=== PATIENT | female | born 1995 | race Hispanic/Latino ===

== ENCOUNTER 2018-12-28 14:21 | Emergency (ER) | payer OTHER, SELFPAY ==
[2018-12-28] MEDS ORDERED: DEXAMETHASONE 4 MG TAB ONE (16:37)
[2018-12-28] MEDS ORDERED: BENZONATATE 100 MG CAP PO ONE (16:37)
--- NOTE | 2018-12-28 17:28 | ER ---
Nurse's Notes [facility] Name: Makenzie Gomez Age: 23 yrs Sex: Female : 1995 Arrival Date: 12/28/2018 Time: 14:27 Bed 6 Private MD: Diagnosis: Acute upper respiratory infection, unspecified Presentation: 12/28 14:41 Presenting complaint: Patient states: Sore throat with cough for 2 days. Transition of aj care: patient was not received from another setting of care. Onset of symptoms was December 26, 2018. Care prior to arrival: None. 14:41 Method Of Arrival: Ambulatory 14:41 Acuity: LAUREN 4 aj 17:16 Risk Assessment: Do you want to hurt yourself or someone else? Patient reports no ph desire to harm self or others. Initial Sepsis Screen: Does the patient meet any 2 criteria? No. Patient's initial sepsis screen is negative. Does the patient have a suspected source of infection? Yes: Productive cough/pneumonia. Triage Assessment: 14:42 General: Appears in no apparent distress. comfortable, Behavior is calm, cooperative, aj appropriate for age. EENT: Reports pain when swallowing. Neuro: Level of Consciousness is awake, alert, obeys commands, Oriented to person, place, time, situation, Appropriate for age. Respiratory: Airway is patent Trachea midline Respiratory effort is even, unlabored, Respiratory pattern is regular, symmetrical. Derm: Skin is pink, warm \T\ dry. 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 - Social history:: Smoking status: Patient/guardian denies using tobacco. - Ebola Screening: : No symptoms or risks identified at this time. Screenin:14 Abuse screen: Denies threats or abuse. Denies injuries from another. Nutritional ph screening: No deficits noted. Tuberculosis screening: No symptoms or risk factors identified. Fall Risk None identified. Assessment: 15:00 General: Appears in no apparent distress. uncomfortable, slender, well groomed, ph Behavior is calm, cooperative, appropriate for age, Denies fever. Pain: Complains of pain in throat. Neuro: Level of Consciousness is awake, alert, obeys commands, Oriented to person, place, time, situation. Cardiovascular: Capillary refill < 3 seconds in bilateral fingers Patient's skin is warm and dry. Respiratory: Reports cough that is productive, Airway is patent Respiratory effort is even, unlabored, Respiratory pattern is regular, symmetrical, Breath sounds are coarse in mediastinum. GI: No signs and/or symptoms were reported involving the gastrointestinal system. Patient currently denies abdominal pain, nausea, vomiting. EENT: Reports nasal congestion pain when swallowing. Derm: Skin is intact, is healthy with good turgor, Skin is pink, warm \T\ dry. Musculoskeletal: Circulation, motion, and sensation intact. Range of motion: intact in all extremities. Vital Signs: 14:42 BP 132 / 76; Pulse 98; Resp 18; Temp 99.2; Pulse Ox 99% on R/A; Weight 51.71 kg; Height aj 5 ft. 3 in. (160.02 cm); 14:42 Body Mass Index 20.19 (51.71 kg, 160.02 cm) ED Course: 14:27 Patient arrived in ED. tw3 14:42 Triage completed. aj 14:42 Arm band placed on left wrist. aj 14:46 Rashid Walters MD is Attending Physician. ps1 15:16 Nancy Perera, RN is Primary Nurse. ph 15:41 Flu and/or RSV swab sent to lab. Strep swab sent to lab. jb1 17:15 No provider procedures requiring assistance completed. Patient did not have IV access ph during this emergency room visit. 17:16 Patient has correct armband on for positive identification. Placed in gown. Bed in low ph position. Call light in reach. Side rails up X 1. Pulse ox on. NIBP on. Door closed. Noise minimized. Administered Medications: 16:32 Drug: Decadron 10 mg Route: PO; ph 16:40 Follow up: Response: No adverse reaction ph 16:32 Drug: Tessalon Perle 100 mg Route: PO; ph 16:40 Follow up: Response: No adverse reaction ph Outcome: 17:26 Discharge ordered by MD. ps1 17:44 Patient left the ED. ph 17:44 Discharged to home ambulatory. ph 17:44 Condition: good 17:44 Discharge instructions given to patient, Instructed on discharge instructions, follow up and referral plans. medication usage, Demonstrated understanding of instructions, follow-up care, medications, Prescriptions given X 4. Signatures: Jaquan Quarles1 Suze Bah RN RN Nancy Arnold RN RN Roe, Sima tw3 Rashid Walters MD MD ps1
--- NOTE | 2018-12-28 17:29 | EDPHYS ---
Physician Documentation [facility] Name: Makenzie Gomez Age: 23 yrs Sex: Female : 1995 Arrival Date: 12/28/2018 Time: 14:27 Bed 6 Private MD: ED Physician Rashid Walters HPI: 12/28 15:13 This 23 yrs old Female presents to ER via Ambulatory with complaints of Cough. ps1 15:13 patient with influenza like illness. Started 3 days ago. States that she has ps1 pharyngitis, cough, headache, chills. Not taking any medications. Lots of phlegm with cough that is clear. No remitting factors or medications taken. . 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 - Social history:: Smoking status: Patient/guardian denies using tobacco. - Ebola Screening: : No symptoms or risks identified at this time. ROS: 15:13 Eyes: Negative for injury, pain, redness, and discharge, Neck: Negative for injury, ps1 pain, and swelling, Cardiovascular: Negative for chest pain, palpitations, and edema, Abdomen/GI: Negative for abdominal pain, nausea, vomiting, diarrhea, and constipation, Back: Negative for injury and pain, MS/Extremity: Negative for injury and deformity, Skin: Negative for injury, rash, and discoloration, Neuro: Negative for headache, weakness, numbness, tingling, and seizure. 15:13 Constitutional: Positive for body aches, chills, fatigue, fever. 15:13 ENT: Positive for sinus congestion, sore throat. 15:13 Respiratory: Positive for cough. Exam: 15:13 Constitutional: This is a well developed, well nourished patient who is awake, alert, ps1 and in no acute distress. Head/Face: Normocephalic, atraumatic. Chest/axilla: Normal chest wall appearance and motion. Nontender with no deformity. No lesions are appreciated. Cardiovascular: Regular rate and rhythm. No gallops, murmurs, or rubs. Normal PMI, no JVD. No pulse deficits. Respiratory: Lungs have equal breath sounds bilaterally, clear to auscultation and percussion. No rales, rhonchi or wheezes noted. No increased work of breathing, no retractions or nasal flaring. Abdomen/GI: Soft, non-tender, with normal bowel sounds. No distension or tympany. No guarding or rebound. No evidence of tenderness throughout. MS/ Extremity: Pulses equal, no cyanosis. Neurovascular intact. Full, normal range of motion. Neuro: Awake and alert, GCS 15, oriented to person, place, time, and situation. Cranial nerves II-XII grossly intact. Sensory grossly intact. 15:13 ENT: External ear(s): are unremarkable, Nose: is normal, Mouth: Lips: normal, Oral mucosa: normal, Gums: normal with healthy appearance, Posterior pharynx: Tonsils: bilaterally enlarged, with erythema, no exudate. Vital Signs: 14:42 BP 132 / 76; Pulse 98; Resp 18; Temp 99.2; Pulse Ox 99% on R/A; Weight 51.71 kg; Height aj 5 ft. 3 in. (160.02 cm); 14:42 Body Mass Index 20.19 (51.71 kg, 160.02 cm) aj MDM: 15:04 Patient medically screened. [facility] 12/28 15:04 Order name: Strep; Complete Time: 16:20 [facility] 12/28 15:04 Order name: Flu; Complete Time: 17:26 [facility] 12/28 16:19 Order name: Throat Culture EDMS Administered Medications: 16:32 Drug: Decadron 10 mg Route: PO; ph 16:40 Follow up: Response: No adverse reaction ph 16:32 Drug: Tessalon Perle 100 mg Route: PO; ph 16:40 Follow up: Response: No adverse reaction ph Disposition: 12/28/18 17:26 Discharged to Home. Impression: Acute upper respiratory infection, unspecified. - Condition is Stable. - Discharge Instructions: Upper Respiratory Infection, Adult. - Prescriptions for Cepacol Sore Throat (shayna- men) - take 1 lozenge by ORAL route as directed; 30 lozenge. chlorpheniramine maleate 4 mg Oral Tablet - take 1 tablet by ORAL route every 6 hours As needed; 30 tablet. Medrol (Matias) 4 mg Oral Tablets, Dose Pack - take 1 tablet by ORAL route as directed - follow package instructions; 1 packet. - Work release form, Medication Reconciliation Form, Thank You Letter, Antibiotic Education, Prescription Opioid Use form. - Follow up: Private Physician; When: As needed; Reason: Further diagnostic work-up, Recheck today's complaints, Continuance of care, Re-evaluation by your physician. Follow up: Emergency Department; When: As needed; Reason: Worsening of condition. - Problem is new. - Symptoms are unchanged. Signatures: Dispatcher [employer] EDSuze Paiz RN RN aj Hall, Patricia, RN RN ph Singer, Phillip, MD MD ps1 Corrections: (The following items were deleted from the chart) 17:44 17:26 12/28/2018 17:26 Discharged to Home. Impression: Acute upper respiratory ph infection, unspecified. Condition is Stable. Forms are Medication Reconciliation Form, Thank You Letter, Antibiotic Education, Prescription Opioid Use. Follow up: Private Physician; When: As needed; Reason: Further diagnostic work-up, Recheck today's complaints, Continuance of care, Re-evaluation by your physician. Follow up: Emergency Department; When: As needed; Reason: Worsening of condition. Problem is new. Symptoms are unchanged. ps1
== END 2018-12-28 17:44 | disposition home or self-care (01) ==
LOC: ER 14:21
DX: J06.9 Acute upper respiratory infection, unspecified (principal)
CPT/HCPCS: 87070; 87081; 87804; 99284

== ENCOUNTER 2019-02-06 13:11 | Emergency (ER) | payer SELFPAY ==
--- OUTSIDE RECORDS SUMMARY | 2019-02-06 13:13 | XMS REPORT ---
:1995 [facility] Organization [facility] Address [address] [place] [address] Care Team Providers Name Role Phone Unavailable Unavailable Unavailable Problems This patient has no known problems. Allergies, Adverse Reactions, Alerts This patient has no known allergies or adverse reactions. Medications This patient has no known medications.
[2019-02-06 14:03] LABS: Absolute Lymphocytes (CBC) 2.3 K/uL (0.7-4.9); Basophils % 0.6 % (0-1.3); Eosinophils % 1.7 % (0-4.4); Hematocrit 43.6 % (36.0-45.0); Lymphocytes % 27.1 % (15.3-44.8); MPV 8.6 fL (7.6-11.3); Monocytes % 9.2 % (3.3-12.3); RBC Red Blood Cell Count 4.81 M/uL (3.86-4.86)
[2019-02-06 14:18] LABS: BUN Blood Urea Nitrogen 14 mg/dL (7-18); Bicarbonate 25 mmol/L (21-32); Glucose Level 89 mg/dL (74-106); Potassium 4.2 mmol/L (3.5-5.1); Sodium Level 143 mmol/L (136-145)
[2019-02-06 14:54] LABS: Urine Blood NEGATIVE (NEG); Urine Glucose NEGATIVE (NEG); Urine Protein NEGATIVE (NEG)
[2019-02-06] MEDS ORDERED: ONDANSETRON 4 MG/2 ML VIAL ONE (14:56)
[2019-02-06] MEDS ORDERED: KETOROLAC 30 MG/ML INJ ONE (14:56)
--- NOTE | 2019-02-06 15:45 | EDPHYS ---
Physician Documentation [facility] Name: Makenzie Gomez Age: 23 yrs Sex: Female : 1995 Arrival Date: 02/06/2019 Time: 13:15 Bed 26 Private MD: ED Physician Jose Barnhart HPI: 02/06 15:53 This 23 yrs old Female presents to ER via Wheelchair with complaints of kb Abdominal Pain, Vaginal Discharge. 15:53 The patient presents with abdominal pain in the left lower quadrant. Onset: The kb symptoms/episode began/occurred yesterday. The symptoms do not radiate. Associated signs and symptoms: Pertinent positives: diarrhea, nausea. The symptoms are described as constant. Modifying factors: The symptoms are alleviated by nothing, the symptoms are aggravated by nothing. Severity of pain: At its worst the pain was moderate in the emergency department the pain is unchanged. The patient has experienced similar episodes in the past, several times, and the symptoms today are exactly the same, to previous ovarian cysts. The patient has not recently seen a physician. 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 - Social history:: Smoking status: Patient uses tobacco products, denies chronic smoking, but will smoke occasionally. - Ebola Screening: : Patient denies travel to an Ebola-affected area in the 21 days before illness onset. ROS: 15:52 Constitutional: Negative for fever, chills, and weight loss, Cardiovascular: Negative kb for chest pain, palpitations, and edema, Respiratory: Negative for shortness of breath, cough, wheezing, and pleuritic chest pain, Back: Negative for injury and pain, MS/Extremity: Negative for injury and deformity, Skin: Negative for injury, rash, and discoloration, Neuro: Negative for headache, weakness, numbness, tingling, and seizure. 15:52 Abdomen/GI: Positive for abdominal pain, nausea, diarrhea. Exam: 15:52 Constitutional: This is a well developed, well nourished patient who is awake, alert, kb and in no acute distress. Head/Face: Normocephalic, atraumatic. Chest/axilla: Normal chest wall appearance and motion. Nontender with no deformity. No lesions are appreciated. Cardiovascular: Regular rate and rhythm with a normal S1 and S2. No gallops, murmurs, or rubs. Normal PMI, no JVD. No pulse deficits. Respiratory: Lungs have equal breath sounds bilaterally, clear to auscultation and percussion. No rales, rhonchi or wheezes noted. No increased work of breathing, no retractions or nasal flaring. Back: No spinal tenderness. No costovertebral tenderness. Full range of motion. Skin: Warm, dry with normal turgor. Normal color with no rashes, no lesions, and no evidence of cellulitis. MS/ Extremity: Pulses equal, no cyanosis. Neurovascular intact. Full, normal range of motion. Neuro: Awake and alert, GCS 15, oriented to person, place, time, and situation. Cranial nerves II-XII grossly intact. Motor strength 5/5 in all extremities. Sensory grossly intact. Cerebellar exam normal. Normal gait. 15:52 Abdomen/GI: Inspection: abdomen appears normal, Bowel sounds: normal, in all quadrants, Palpation: soft, in all quadrants, mild abdominal tenderness, in the suprapubic area and left lower quadrant. Vital Signs: 13:18 BP 111 / 77; Pulse 92; Resp 20; Temp 98.0; Pulse Ox 99% on R/A; Weight 51.26 kg (R); aj1 Height 5 ft. 3 in. (160.02 cm) (R); Pain 8/10; 14:46 BP 96 / 59; Pulse 67; Resp 18; Temp 98; Pulse Ox 100% on R/A; mg2 15:50 BP 109 / 85; Pulse 63; Resp 18; Pulse Ox 100% on R/A; mg2 13:18 Body Mass Index 20.02 (51.26 kg, 160.02 cm) aj1 MDM: 13:21 Patient medically screened. kb 15:51 Data reviewed: vital signs, nurses notes. Data interpreted: Pulse oximetry: on room air kb is 100 %. Interpretation: normal. Counseling: I had a detailed discussion with the patient and/or guardian regarding: the historical points, exam findings, and any diagnostic results supporting the discharge/admit diagnosis, lab results, radiology results, the need for outpatient follow up, an OB/Gyne specialist, to return to the emergency department if symptoms worsen or persist or if there are any questions or concerns that arise at home. 02/06 13:36 Order name: CBC with Diff; Complete Time: 14:06 kb 02/06 13:36 Order name: Basic Metabolic Panel; Complete Time: 14:22 kb 02/06 14:06 Order name: US Transvaginal Study (Probe); Complete Time: 15:54 kb 02/06 14:13 Order name: Urine Dipstick--Ancillary (enter results) ms 02/06 14:13 Order name: Urine --Ancillary (enter results); Complete Time: 14:59 ms 02/06 14:13 Order name: Urine Dipstick-Ancillary; Complete Time: 14:59 EDMS 02/06 13:21 Order name: Urine Dipstick-Ancillary (obtain specimen); Complete Time: 14:01 kb 02/06 13:36 Order name: Urine Test (obtain specimen); Complete Time: 14:02 kb 02/06 13:36 Order name: IV Start; Complete Time: 13:53 kb Administered Medications: 14:43 Drug: Zofran 4 mg Route: IVP; Site: right antecubital; mg2 15:49 Follow up: Response: No adverse reaction; Marked relief of symptoms mg2 14:43 Drug: TORadol - Ketorolac 15 mg Route: IVP; Site: right antecubital; mg2 15:49 Follow up: Response: No adverse reaction; Marked relief of symptoms mg2 Disposition: 18:45 Co-signature as Attending Physician, Jose Barnhart MD. gs Disposition: 02/06/19 15:45 Discharged to Home. Impression: Unspecified ovarian cysts. - Condition is Stable. - Discharge Instructions: Ovarian Cyst, [id number]. - Prescriptions for Zofran 4 mg Oral Tablet - take 1 tablet by ORAL route every 6 hours As needed; 20 tablet. Diclofenac Sodium 75 mg Oral Tablet, Delayed Release (E.C.) - take 1 tablet by ORAL route 2 times per day As needed; 30 tablet. - Medication Reconciliation Form, Thank You Letter, Antibiotic Education, Prescription Opioid Use form. - Follow up: Emergency Department; When: As needed; Reason: Worsening of condition. Follow up: Private Physician; When: 2 - 3 days; Reason: Recheck today's complaints, Continuance of care, Re-evaluation by your physician. Signatures: Dispatcher [employer] Josephine Malloy, TIM REYEZ-Leila Gomez, RN RN aj1 Jose Barnhart MD MD gs Segun Coreas RN RN mg2 Corrections: (The following items were deleted from the chart) 16:01 15:45 02/06/2019 15:45 Discharged to Home. Impression: Unspecified ovarian cysts. mg2 Condition is Stable. Forms are Medication Reconciliation Form, Thank You Letter, Antibiotic Education, Prescription Opioid Use. Follow up: Emergency Department; When: As needed; Reason: Worsening of condition. Follow up: Private Physician; When: 2 - 3 days; Reason: Recheck today's complaints, Continuance of care, Re-evaluation by your physician. kb
--- NOTE | 2019-02-06 15:45 | ER ---
Nurse's Notes [facility] Name: Makenzie Gomez Age: 23 yrs Sex: Female : 1995 Arrival Date: 02/06/2019 Time: 13:15 Bed 26 Private MD: Diagnosis: Unspecified ovarian cysts Presentation: 02/06 13:16 Presenting complaint: Patient states: "yesterday I was cramping, then this morning I aj1 woke up and I had the runs really bad and every time I burp it tastes like acid" Patient also reports a "mucus discharge" from her vagina that started today. Denies fever. Transition of care: patient was not received from another setting of care. Onset of symptoms was February 06, 2019. Risk Assessment: Do you want to hurt yourself or someone else? Patient reports no desire to harm self or others. Initial Sepsis Screen: Does the patient meet any 2 criteria? HR > 90 bpm. No. Patient's initial sepsis screen is negative. Does the patient have a suspected source of infection? Yes: Acute abdominal pain. Care prior to arrival: None. 13:16 Method Of Arrival: Wheelchair aj 13:16 Acuity: LAUREN 3 aj1 Triage Assessment: 13:18 General: Appears uncomfortable, Behavior is calm, cooperative, appropriate for age. aj1 Pain: Complains of pain in abdomen Pain currently is 8 out of 10 on a pain scale. Neuro: Level of Consciousness is awake, alert, obeys commands. Cardiovascular: Patient's skin is warm and dry. Respiratory: Airway is patent Respiratory effort is even, unlabored, Respiratory pattern is regular, symmetrical. GI: Reports diarrhea. 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 - Social history:: Smoking status: Patient uses tobacco products, denies chronic smoking, but will smoke occasionally. - Ebola Screening: : Patient denies travel to an Ebola-affected area in the 21 days before illness onset. Screenin:46 Abuse screen: Denies threats or abuse. Denies injuries from another. Nutritional mg2 screening: No deficits noted. Tuberculosis screening: No symptoms or risk factors identified. Fall Risk IV access (20 points). Assessment: 14:43 General: Appears in no apparent distress. comfortable, Behavior is calm, cooperative. mg2 Pain: Complains of pain in abdomen Pain does not radiate. Pain currently is 5 out of 10 on a pain scale. Quality of pain is described as crampy, Pain began gradually, 1 day ago. Is intermittent. Neuro: Level of Consciousness is awake, alert, obeys commands, Oriented to person, place, time, situation. Cardiovascular: Capillary refill < 3 seconds Patient's skin is warm and dry. Respiratory: No deficits noted. GI: Bowel sounds present X 4 quads. Abd is soft and non tender Reports lower abdominal pain, nausea. : No signs and/or symptoms were reported regarding the genitourinary system. EENT: No signs and/or symptoms were reported regarding the EENT system. Derm: Skin is intact, is healthy with good turgor, Skin is pink, warm \\T\\ dry. normal. Musculoskeletal: Circulation, motion, and sensation intact. Capillary refill < 3 seconds. Vital Signs: 13:18 BP 111 / 77; Pulse 92; Resp 20; Temp 98.0; Pulse Ox 99% on R/A; Weight 51.26 kg (R); aj1 Height 5 ft. 3 in. (160.02 cm) (R); Pain 8/10; 14:46 BP 96 / 59; Pulse 67; Resp 18; Temp 98; Pulse Ox 100% on R/A; mg2 15:50 BP 109 / 85; Pulse 63; Resp 18; Pulse Ox 100% on R/A; mg2 13:18 Body Mass Index 20.02 (51.26 kg, 160.02 cm) aj1 ED Course: 13:15 Patient arrived in ED. mr 13:17 Triage completed. aj1 13:18 Arm band placed on Patient placed in an exam room. aj1 13:21 Josephine Ledezma FNP-C [facility]. kb 13:21 Jose Barnhart MD is Attending Physician. kb 13:26 Leila Duff, KATHRIN is Primary Nurse. aj1 13:45 Urine collected: clean catch specimen, clear, monalisa colored. jp3 13:49 Initial lab(s) drawn, by me, sent to lab. Inserted saline lock: 22 gauge in right jp3 antecubital area, using aseptic technique. Blood collected. Patient maintains SpO2 saturation greater than 95% on room air. 13:53 Bed in low position. Call light in reach. Side rails up X 1. Pillow given. Verbal jp3 reassurance given. Pulse ox on. NIBP on. 13:53 Basic Metabolic Panel Sent. jp3 13:53 CBC with Diff Sent. jp3 14:18 Urine Dipstick--Ancillary (enter results) Sent. jp3 14:46 No provider procedures requiring assistance completed. mg2 15:39 US Transvaginal Study (Probe) In Process Unspecified. EDMS 15:57 IV discontinued, intact, bleeding controlled, No redness/swelling at site. Pressure mg2 dressing applied. Administered Medications: 14:43 Drug: Zofran 4 mg Route: IVP; Site: right antecubital; mg2 15:49 Follow up: Response: No adverse reaction; Marked relief of symptoms mg2 14:43 Drug: TORadol - Ketorolac 15 mg Route: IVP; Site: right antecubital; mg2 15:49 Follow up: Response: No adverse reaction; Marked relief of symptoms mg2 Outcome: 15:45 Discharge ordered by . kb 16:00 Discharged to home ambulatory. mg2 16:00 Condition: stable 16:00 Discharge instructions given to patient, Instructed on discharge instructions, follow up and referral plans. medication usage, Demonstrated understanding of instructions, follow-up care, medications, Prescriptions given X 2. 16:01 Patient left the ED. mg2 Signatures: Dispatcher [employer] EDMS Josephine Ledezma, TREASUREC POWERPLANT OPERATOR-Leila Gomez, RN RN aj1 Kajal Del Rio Michele, KATHRIN RN mg2 Kang Petty jp3
--- NOTE | 2019-02-06 15:52 | RAD REPORT ---
EXAM DESCRIPTION: US - Transvaginal Study Probe - 02/06/2019 3:39 pm CLINICAL HISTORY: Abdominal pain COMPARISON: none FINDINGS: The uterus measures 7 x 4 x 4cm. A fibroid is not seen. The endometrial stripe measures 7 millimeters The ovaries are normal in size and echotexture. 1.6 centimeter left ovarian follicle. Blood flow with in each ovary Right and left adnexal unremarkable No significant free fluid is seen. IMPRESSION: Unremarkable pelvic ultrasound
== END 2019-02-06 16:01 | disposition home or self-care (01) ==
LOC: ER 13:11
DX: N83.209 Unspecified ovarian cyst, unspecified side (principal); Z72.0 Tobacco use
CPT/HCPCS: 36415; 76830; 80048; 81003; 81025; 85025; 96374; 96375; 99284; J2405

== ENCOUNTER 2019-02-22 16:10 | Emergency (ER) | payer SELFPAY ==
[2019-02-22] MEDS ORDERED: ONDANSETRON 4 MG (ODT) TAB ONE (16:39)
[2019-02-22 17:29] LABS: Absolute Lymphocytes (CBC) 0.7 K/uL (0.7-4.9); Lymphocytes % 4.6 % (15.3-44.8); MPV 7.9 fL (7.6-11.3); RBC Red Blood Cell Count 4.95 M/uL (3.86-4.86)
[2019-02-22 17:46] LABS: ALT/SGPT 19 U/L (12-78); AST/SGOT 14 U/L (15-37); Albumin 4.2 g/dL (3.4-5.0); Alkaline Phosphatase 66 U/L (45-117); BUN Blood Urea Nitrogen 11 mg/dL (7-18); Bicarbonate 23 mmol/L (21-32); Bilirubin Direct 0.1 mg/dL (0-0.2); Bilirubin Total 0.6 mg/dL (0.2-1.0); Glucose Level 84 mg/dL (74-106); Lipase 57 U/L (73-393); Potassium 3.8 mmol/L (3.5-5.1); Protein, Total 8.1 g/dL (6.4-8.2); Sodium Level 139 mmol/L (136-145)
[2019-02-22 17:48] LABS: Urine Blood NEGATIVE (NEG); Urine Glucose NEGATIVE (NEG); Urine Protein TRACE (NEG); Urine Specific Gravity >1.030 (1.005-1.030)
[2019-02-22] MEDS ORDERED: KETOROLAC 30 MG/ML INJ ONE (17:50)
[2019-02-22] MEDS ORDERED: NA CHLORIDE 0.9% 1,000 ML ONE (17:50)
[2019-02-22] MEDS ORDERED: ONDANSETRON 4 MG/2 ML VIAL ONE ×2 (17:50→19:27)
[2019-02-22 18:23] LABS: Blood Morphology Comment NOT SEEN (NOT SEEN); Platelet Estimate ADEQ; Urine White Blood Cell Casts OK
--- NOTE | 2019-02-22 18:48 | RAD REPORT ---
EXAM DESCRIPTION: CT - Abdomen Pelvis W Contrast - 02/22/2019 6:22 pm CLINICAL HISTORY: Abdominal pain with vomiting COMPARISON: 2013 TECHNIQUE: Computed axial tomography of the abdomen pelvis was obtained. 100 cc Isovue-300 was admin istered intravenously. Oral contrast was not requested which limits evaluation of bowel. All CT scans are performed using dose optimization technique as appropriate and may include automated exposure control or mA/KV adjustment according to patient size. FINDINGS: The liver, spleen, pancreas, adrenal and kidneys appear unremarkable. There is no evidence of diverticulitis. Fluid throughout nondilated large and small bowel. Mild thickening of the wall of several loops of je junum 15 millimeter left ovarian follicle IMPRESSION: Fluid throughout nondilated large and small bowel with mild thickening of the wall of se veral loops of jejunum may indicate an enteritis
--- NOTE | 2019-02-22 19:14 | ER ---
Nurse's Notes [facility] Name: Makenzie Gomez Age: 23 yrs Sex: Female : 1995 Arrival Date: 02/22/2019 Time: 16:12 Bed 28 Private MD: Diagnosis: Generalized abdominal pain Presentation: 02/22 16:35 Presenting complaint: N/V/D and chills since this morning. Not tolerating fluids. hb Transition of care: patient was not received from another setting of care. Onset of symptoms was February 22, 2019. Risk Assessment: Do you want to hurt yourself or someone else? Patient reports no desire to harm self or others. Care prior to arrival: None. 16:35 Method Of Arrival: Ambulatory hb 16:35 Acuity: LAUREN 3 hb 17:09 Initial Sepsis Screen: Does the patient meet any 2 criteria? No. Patient's initial mg2 sepsis screen is negative. Does the patient have a suspected source of infection? No. Patient's initial sepsis screen is negative. 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 - Social history:: Smoking status: Patient/guardian denies using tobacco. - Ebola Screening: : No symptoms or risks identified at this time. Screenin:09 Abuse screen: Denies threats or abuse. Denies injuries from another. Nutritional mg2 screening: No deficits noted. Tuberculosis screening: No symptoms or risk factors identified. Fall Risk None identified. Assessment: 17:19 General: Appears uncomfortable, Behavior is calm, cooperative. Pain: Complains of pain mg2 in abdomen Pain does not radiate. Pain currently is 8 out of 10 on a pain scale. Quality of pain is described as aching, Pain began gradually, Is intermittent. Neuro: Level of Consciousness is awake, alert, obeys commands, Oriented to person, place, time, situation. Cardiovascular: Capillary refill < 3 seconds Patient's skin is warm and dry. Respiratory: Airway is patent Respiratory effort is even, unlabored, Respiratory pattern is regular, symmetrical. GI: Bowel sounds present X 4 quads. Abd is soft and non tender Reports lower abdominal pain, upper abdominal pain, nausea, vomiting. EENT: No signs and/or symptoms were reported regarding the EENT system. Derm: Skin is intact, is healthy with good turgor, Skin is pink, warm \T\ dry. normal. Musculoskeletal: Circulation, motion, and sensation intact. Capillary refill < 3 seconds. 18:51 Reassessment: Patient states feeling better. mg2 19:53 Reassessment: Patient states feeling better. Patient states symptoms have improved. mg2 Vital Signs: 16:35 BP 138 / 79; Pulse 116; Resp 16; Temp 98.1; Pulse Ox 100% on R/A; Weight 68.04 kg; hb Height 5 ft. 3 in. (160.02 cm); Pain 10/10; 18:45 BP 121 / 75; Pulse 92; Resp 18; Pulse Ox 100% on R/A; Pain 4/10; mg2 16:35 Body Mass Index 26.57 (68.04 kg, 160.02 cm) hb ED Course: 16:12 Patient arrived in ED. mr 16:35 Triage completed. hb 16:35 Arm band placed on. hb 17:08 Segun Coreas, RN is Primary Nurse. mg2 17:19 Patient has correct armband on for positive identification. vehicle monitor technician on. Pulse mg2 ox on. NIBP on. Door closed. Warm blanket given. 17:19 No provider procedures requiring assistance completed. Inserted saline lock: 20 gauge mg2 22 gauge in left antecubital area, using aseptic technique. Blood collected. 17:20 Joseph[facility]ede[facility]-C [facility] kb 17:20 Farhat Dorantes MD is Attending Physician. kb 18:22 CT Abd/Pelvis - IV Contrast Only In Process Unspecified. EDMS 19:53 IV discontinued, intact, bleeding controlled, No redness/swelling at site. Pressure mg2 dressing applied. Administered Medications: 16:40 Drug: Zofran 4 mg Route: PO; hb 17:30 Follow up: Response: No adverse reaction mg2 17:53 Drug: TORadol - Ketorolac 15 mg Route: IVP; Site: left antecubital; mg2 18:52 Follow up: Response: No adverse reaction; Marked relief of symptoms mg2 19:52 Follow up: Response: No adverse reaction; Marked relief of symptoms mg2 17:54 Drug: NS 0.9% 1000 ml Route: IV; Rate: 1000 ml; Site: left antecubital; mg2 19:53 Follow up: Response: No adverse reaction; IV Status: Completed infusion; IV Intake: mg2 1000ml 17:54 Drug: Zofran 4 mg Route: IVP; Site: left antecubital; mg2 18:52 Follow up: Response: No adverse reaction; Marked relief of symptoms mg2 19:44 Drug: Zofran 4 mg Route: IVP; Site: left antecubital; mg2 19:52 Follow up: Response: No adverse reaction; Medication administered at discharge. mg2 19:45 Drug: Bentyl 20 mg Route: PO; mg2 19:52 Follow up: Response: No adverse reaction; Medication administered at discharge. mg2 Intake: 19:53 IV: 1000ml; Total: 1000ml. mg2 Outcome: 19:13 Discharge ordered by . kb 19:54 Discharged to home ambulatory. mg2 19:54 Condition: stable 19:54 Discharge instructions given to patient, Instructed on discharge instructions, follow up and referral plans. medication usage, Demonstrated understanding of instructions, follow-up care, medications, Prescriptions given X 2. 19:54 Patient left the ED. mg2 Signatures: Dispatcher [employer] EDMS Josephine Ledezma, TIM REYEZ-Kajal Salazar mr Jane Carreon, Segun Campos RN, RN RN mg2
--- NOTE | 2019-02-22 19:15 | EDPHYS ---
Physician Documentation [facility] Name: Makenzie Gomez Age: 23 yrs Sex: Female : 1995 Arrival Date: 02/22/2019 Time: 16:12 Bed 28 Private MD: ED Physician Farhat Dorantes HPI: 02/23 01:41 This 23 yrs old Female presents to ER via Ambulatory with complaints of kb Abdominal Pain, Vomiting. 01:41 The patient presents with abdominal pain that is diffuse. Onset: The symptoms/episode kb began/occurred last night. The symptoms do not radiate. Associated signs and symptoms: Pertinent positives: nausea, vomiting, and diarrhea. The symptoms are described as constant. Modifying factors: The symptoms are alleviated by nothing, the symptoms are aggravated by nothing. Severity of pain: At its worst the pain was moderate in the emergency department the pain is unchanged. The patient has not experienced similar symptoms in the past. The patient has not recently seen a physician. Pt reports n/v/d and diffuse abd pain since last night. States "I think I ate something bad.". 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 - Social history:: Smoking status: Patient/guardian denies using tobacco. - Ebola Screening: : No symptoms or risks identified at this time. ROS: 02/23 01:41 Constitutional: Negative for fever, chills, and weight loss, ENT: Negative for injury, kb pain, and discharge, Neck: Negative for injury, pain, and swelling, Cardiovascular: Negative for chest pain, palpitations, and edema, Respiratory: Negative for shortness of breath, cough, wheezing, and pleuritic chest pain, Back: Negative for injury and pain, : Negative for injury, bleeding, discharge, and swelling, MS/Extremity: Negative for injury and deformity, Skin: Negative for injury, rash, and discoloration, Neuro: Negative for headache, weakness, numbness, tingling, and seizure. Abdomen/GI: Positive for abdominal pain, nausea, vomiting, and diarrhea, Negative for constipation. Exam: 01:41 Constitutional: This is a well developed, well nourished patient who is awake, alert, kb and in no acute distress. Head/Face: Normocephalic, atraumatic. Neck: Trachea midline, no thyromegaly or masses palpated, and no cervical lymphadenopathy. Supple, full range of motion without nuchal rigidity, or vertebral point tenderness. No Meningismus. Chest/axilla: Normal chest wall appearance and motion. Nontender with no deformity. No lesions are appreciated. Cardiovascular: Regular rate and rhythm with a normal S1 and S2. No gallops, murmurs, or rubs. Normal PMI, no JVD. No pulse deficits. Respiratory: Lungs have equal breath sounds bilaterally, clear to auscultation and percussion. No rales, rhonchi or wheezes noted. No increased work of breathing, no retractions or nasal flaring. Skin: Warm, dry with normal turgor. Normal color with no rashes, no lesions, and no evidence of cellulitis. MS/ Extremity: Pulses equal, no cyanosis. Neurovascular intact. Full, normal range of motion. Neuro: Awake and alert, GCS 15, oriented to person, place, time, and situation. Cranial nerves II-XII grossly intact. Motor strength 5/5 in all extremities. Sensory grossly intact. Cerebellar exam normal. Normal gait. 01:41 Abdomen/GI: Inspection: abdomen appears normal, Bowel sounds: normal, in all quadrants, Palpation: soft, in all quadrants, mild abdominal tenderness, in all quadrants. Vital Signs: 02/22 16:35 BP 138 / 79; Pulse 116; Resp 16; Temp 98.1; Pulse Ox 100% on R/A; Weight 68.04 kg; hb Height 5 ft. 3 in. (160.02 cm); Pain 10/10; 18:45 BP 121 / 75; Pulse 92; Resp 18; Pulse Ox 100% on R/A; Pain 4/10; mg2 16:35 Body Mass Index 26.57 (68.04 kg, 160.02 cm) hb MDM: 17:20 Patient medically screened. kb 02/23 01:40 Data reviewed: vital signs, nurses notes. Data interpreted: Pulse oximetry: on room air kb is 100 %. Interpretation: normal. Counseling: I had a detailed discussion with the patient and/or guardian regarding: the historical points, exam findings, and any diagnostic results supporting the discharge/admit diagnosis, lab results, radiology results, the need for outpatient follow up, a family practitioner, to return to the emergency department if symptoms worsen or persist or if there are any questions or concerns that arise at home. 02/22 17:07 Order name: Basic Metabolic Panel; Complete Time: 17:47 mg2 02/22 17:07 Order name: CBC with Diff; Complete Time: 18:26 mg2 02/22 17:07 Order name: Creatinine for Radiology; Complete Time: 17:47 mg2 02/22 17:07 Order name: Hepatic Function; Complete Time: 17:47 mg2 02/22 17:07 Order name: Lipase; Complete Time: 17:47 mg2 02/22 17:24 Order name: Urine Dipstick--Ancillary (enter results); Complete Time: 17:51 bd 02/22 17:24 Order name: Urine --Ancillary (enter results); Complete Time: 17:51 bd 02/22 17:41 Order name: CBC Smear Scan; Complete Time: 18:26 EDMS 02/22 17:48 Order name: CT Abd/Pelvis - IV Contrast Only; Complete Time: 18:52 kb 02/22 17:07 Order name: IV Saline Lock; Complete Time: 17:23 mg2 02/22 17:07 Order name: Labs collected and sent; Complete Time: 17:23 mg2 Administered Medications: 02/22 16:40 Drug: Zofran 4 mg Route: PO; hb 17:30 Follow up: Response: No adverse reaction mg2 17:53 Drug: TORadol - Ketorolac 15 mg Route: IVP; Site: left antecubital; mg2 18:52 Follow up: Response: No adverse reaction; Marked relief of symptoms mg2 19:52 Follow up: Response: No adverse reaction; Marked relief of symptoms mg2 17:54 Drug: NS 0.9% 1000 ml Route: IV; Rate: 1000 ml; Site: left antecubital; mg2 19:53 Follow up: Response: No adverse reaction; IV Status: Completed infusion; IV Intake: mg2 1000ml 17:54 Drug: Zofran 4 mg Route: IVP; Site: left antecubital; mg2 18:52 Follow up: Response: No adverse reaction; Marked relief of symptoms mg2 19:44 Drug: Zofran 4 mg Route: IVP; Site: left antecubital; mg2 19:52 Follow up: Response: No adverse reaction; Medication administered at discharge. mg2 19:45 Drug: Bentyl 20 mg Route: PO; mg2 19:52 Follow up: Response: No adverse reaction; Medication administered at discharge. mg2 Disposition: 02/23 07:57 Co-signature as Attending Physician, Farhat Dorantes MD I agree with the assessment and wa plan of care. Disposition: 02/22/19 19:13 Discharged to Home. Impression: Generalized abdominal pain. - Condition is Stable. - Discharge Instructions: Viral Gastroenteritis, Adult, [id number]. - Prescriptions for Bentyl 20 mg Oral Tablet - take 1 tablet by ORAL route every 6 hours As needed; 20 tablet. Zofran 4 mg Oral Tablet - take 1 tablet by ORAL route every 6 hours As needed; 20 tablet. - Medication Reconciliation Form, Thank You Letter, Antibiotic Education, Prescription Opioid Use, Work release form form. - Follow up: Emergency Department; When: As needed; Reason: Worsening of condition. Follow up: Private Physician; When: 2 - 3 days; Reason: Recheck today's complaints, Continuance of care, Re-evaluation by your physician. Signatures: Dispatcher [employer] EDMS Josephine Ledezma, BUSINESS STRATEGY MANAGER-C BUSINESS STRATEGY MANAGER-Ckb Jane Carreon, KATHRIN PINON Farhat Dorantes MD MD wa Gardose, Michele, RN RN mg2 Leon Cook RN RN [id number] Corrections: (The following items were deleted from the chart) 02/22 19:54 19:13 02/22/2019 19:13 Discharged to Home. Impression: Generalized abdominal pain. mg2 Condition is Stable. Forms are Medication Reconciliation Form, Thank You Letter, Antibiotic Education, Prescription Opioid Use. Follow up: Emergency Department; When: As needed; Reason: Worsening of condition. Follow up: Private Physician; When: 2 - 3 days; Reason: Recheck today's complaints, Continuance of care, Re-evaluation by your physician. kb
[2019-02-22] MEDS ORDERED: DICYCLOMINE HCL 10 MG CAP ONE (19:27)
== END 2019-02-22 19:54 | disposition home or self-care (01) ==
LOC: ER 16:10
DX: R10.84 Generalized abdominal pain (principal)
CPT/HCPCS: 36415; 74177; 80048; 80076; 81003; 81025; 83690; 85025; 96361; 96374; 96375; 99284; J2405; J7030; Q9967

== ENCOUNTER 2019-03-17 16:54 | Emergency (ER) | payer SELFPAY ==
--- OUTSIDE RECORDS SUMMARY | 2019-03-17 16:56 | XMS REPORT ---
:1995 [facility] [address] [place] [id number] Care Team Providers Name Role Phone Unavailable Unavailable Unavailable Problems This patient has no known problems. Allergies, Adverse Reactions, Alerts This patient has no known allergies or adverse reactions. Medications This patient has no known medications.
[2019-03-17] MEDS ORDERED: dexAMETHasone 10 MG/ML VIAL ONE (17:14)
[2019-03-17] MEDS ORDERED: AMOX/K CLAV 875 MG TAB ONE (17:15)
[2019-03-17] MEDS ORDERED: KETOROLAC 30 MG/ML INJ ONE (17:15)
--- NOTE | 2019-03-17 17:21 | ER ---
Nurse's Notes [facility] Name: Makenzie Gomez Age: 23 yrs Sex: Female : 1995 Arrival Date: 03/17/2019 Time: 16:57 Bed 25 Private MD: Diagnosis: Periapical abscess without sinus Presentation: 03/17 17:05 Presenting complaint: Patient states: i have dental pain since yesterday and my left mg2 cheek started to swell today. i took advil and tylenol earlier this morning but not really helping. Transition of care: patient was not received from another setting of care. Onset of symptoms was March 16, 2019. Risk Assessment: Do you want to hurt yourself or someone else? Patient reports no desire to harm self or others. Initial Sepsis Screen: Does the patient meet any 2 criteria? No. Patient's initial sepsis screen is negative. Does the patient have a suspected source of infection? No. Patient's initial sepsis screen is negative. Care prior to arrival: None. 17:05 Method Of Arrival: Ambulatory mg2 17:05 Acuity: LAUREN 4 mg2 Triage Assessment: 17:08 General: Appears in no apparent distress. comfortable, Behavior is calm, cooperative. mg2 Pain: Complains of pain in mouth Pain radiates to left ear Pain currently is 10 out of 10 on a pain scale. Quality of pain is described as aching, Pain began gradually, 1 day ago. Is intermittent. EENT: Dental caries noted in lower left third molar (#17). Neuro: Level of Consciousness is awake, alert, obeys commands, Oriented to person, place, time, situation. Cardiovascular: Capillary refill < 3 seconds Patient's skin is warm and dry. Respiratory: Airway is patent Respiratory effort is even, unlabored, Respiratory pattern is regular, symmetrical. GI: No signs and/or symptoms were reported involving the gastrointestinal system. : No signs and/or symptoms were reported regarding the genitourinary system. Derm: Skin is intact, is healthy with good turgor, Skin is pink, warm \T\ dry. normal. Musculoskeletal: Circulation, motion, and sensation intact. Capillary refill < 3 seconds. 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 - Social history:: Smoking status: Patient uses tobacco products, denies chronic smoking, but will smoke occasionally. - Ebola Screening: : No symptoms or risks identified at this time. Screenin:10 Abuse screen: Denies threats or abuse. Denies injuries from another. Nutritional mg2 screening: No deficits noted. Tuberculosis screening: No symptoms or risk factors identified. Fall Risk None identified. Assessment: 17:10 Reassessment: see triage assessment. mg2 Vital Signs: 17:07 BP 110 / 74; Pulse 98; Resp 18; Temp 99.4; Pulse Ox 100% on R/A; Pain 10/10; mg2 ED Course: 16:57 Patient arrived in ED. mr 17:05 Segun Coreas, RN is Primary Nurse. mg2 17:07 Triage completed. mg2 17:07 Dileep Avila PA [facility]. jr8 17:07 Peace Gonzalez MD is Attending Physician. jr8 17:08 Arm band placed on. mg2 17:10 Patient has correct armband on for positive identification. mg2 17:10 No provider procedures requiring assistance completed. Patient did not have IV access mg2 during this emergency room visit. Administered Medications: 17:20 Drug: Augmentin 875 mg Route: PO; mg2 17:33 Follow up: Response: No adverse reaction; Medication administered at discharge. mg2 17:20 Drug: TORadol - Ketorolac 15 mg Route: IM; Site: right gluteus; mg2 17:32 Follow up: Response: No adverse reaction; Medication administered at discharge. mg2 17:20 Drug: Decadron 10 mg Route: IM; Site: left gluteus; mg2 17:32 Follow up: Response: No adverse reaction; Medication administered at discharge. mg2 Outcome: 17:19 Discharge ordered by . [email or web address] 17:33 Discharged to home ambulatory, with friend. mg2 17:33 Condition: stable 17:33 Discharge instructions given to patient, friend, Instructed on discharge instructions, follow up and referral plans. medication usage, Demonstrated understanding of instructions, follow-up care, medications, Prescriptions given X 2. 17:34 Patient left the ED. mg2 Signatures: Kajal Del Rio mr Dileep Avila PA PA [id number] Segun Coreas, RN RN mg2
--- NOTE | 2019-03-17 17:21 | EDPHYS ---
Physician Documentation [facility] Name: Makenzie Gomez Age: 23 yrs Sex: Female : 1995 Arrival Date: 03/17/2019 Time: 16:57 Bed 25 Private MD: ED Physician Peace Gonzalez HPI: 03/17 17:12 This 23 yrs old Female presents to ER via Ambulatory with complaints of Mouth jr8 Swelling. 17:12 The patient presents with pain, redness, swelling. The problem is located in the left jr8 jaw. Onset: The symptoms/episode began/occurred acutely, 2 day(s) ago. Duration: The symptoms are continuous. Modifying factors: The symptoms are alleviated by nothing, the symptoms are aggravated by chewing, talking. Associated signs and symptoms: The patient has no apparent associated signs or symptoms. Severity of symptoms: At their worst the symptoms were moderate, in the emergency department the symptoms are unchanged. The patient has experienced a previous episode. The patient has not recently seen a physician. 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 - Social history:: Smoking status: Patient uses tobacco products, denies chronic smoking, but will smoke occasionally. - Ebola Screening: : No symptoms or risks identified at this time. ROS: 17:12 Constitutional: Negative for fever, chills, and weight loss. jr8 17:12 ENT: Positive for dental pain, Gum pain 17:12 All other systems are negative. Exam: 17:12 Eyes: Pupils equal round and reactive to light, extra-ocular motions intact. Lids and jr8 lashes normal. Conjunctiva and sclera are non-icteric and not injected. Cornea within normal limits. Periorbital areas with no swelling, redness, or edema. Neck: Trachea midline, no thyromegaly or masses palpated, and no cervical lymphadenopathy. Supple, full range of motion without nuchal rigidity, or vertebral point tenderness. No Meningismus. Cardiovascular: Regular rate and rhythm with a normal S1 and S2. No gallops, murmurs, or rubs. Normal PMI, no JVD. No pulse deficits. Respiratory: Lungs have equal breath sounds bilaterally, clear to auscultation and percussion. No rales, rhonchi or wheezes noted. No increased work of breathing, no retractions or nasal flaring. Abdomen/GI: Soft, non-tender, with normal bowel sounds. No distension or tympany. No guarding or rebound. No evidence of tenderness throughout. Skin: Warm, dry with normal turgor. Normal color with no rashes, no lesions, and no evidence of cellulitis. MS/ Extremity: Pulses equal, no cyanosis. Neurovascular intact. Full, normal range of motion. Neuro: Awake and alert, GCS 15, oriented to person, place, time, and situation. Cranial nerves II-XII grossly intact. Motor strength 5/5 in all extremities. Sensory grossly intact. Cerebellar exam normal. Normal gait. 17:12 Head/face: Noted is mild swelling noted to left jaw without lymphadenopathy . 17:12 ENT: Exam is negative for earache, ear discharge, TM abnormalities, nasal discharge, Mouth: Lips: moist, Oral mucosa: pink and intact, moist, Gums: reddened, swollen, on the left buccal mucosa, lower left third molar and lower left second molar, Tongue: is normal, abscess, is not appreciated, none palpated, drooling, is not appreciated, Posterior pharynx: Airway: patent, Tonsils: are normal in appearance, Uvula: midline, swelling, is not appreciated, erythema, is not appreciated, Dental exam: dental caries, that is mild, diffusely. Vital Signs: 17:07 BP 110 / 74; Pulse 98; Resp 18; Temp 99.4; Pulse Ox 100% on R/A; Pain 10/10; mg2 MDM: 17:07 Patient medically screened. jr8 17:12 Differential diagnosis: dental caries, gingivitis, dental abscess, parotiditis. Data jr8 reviewed: vital signs, nurses notes, and as a result, I will discharge patient. Data interpreted: Pulse oximetry: on room air is 100 %. Interpretation: normal. Counseling: I had a detailed discussion with the patient and/or guardian regarding: the historical points, exam findings, and any diagnostic results supporting the discharge/admit diagnosis, the need for outpatient follow up, a dentist, to return to the emergency department if symptoms worsen or persist or if there are any questions or concerns that arise at home. ED course: Will start patient on NSAIDs and ABX. No discrete abscess identified on exam to drain. Recommended f/u with dentist at this point. If worse to come back for further evaluation and possible facial CT . Administered Medications: 17:20 Drug: Augmentin 875 mg Route: PO; mg2 17:33 Follow up: Response: No adverse reaction; Medication administered at discharge. mg2 17:20 Drug: TORadol - Ketorolac 15 mg Route: IM; Site: right gluteus; mg2 17:32 Follow up: Response: No adverse reaction; Medication administered at discharge. mg2 17:20 Drug: Decadron 10 mg Route: IM; Site: left gluteus; mg2 17:32 Follow up: Response: No adverse reaction; Medication administered at discharge. mg2 Disposition: 03/17/19 17:19 Discharged to Home. Impression: Periapical abscess without sinus. - Condition is Stable. - Discharge Instructions: Dental Abscess, Dental Pain, Root Canal. - Prescriptions for Augmentin 875- 125 mg Oral Tablet - take 1 tablet by ORAL route every 12 hours for 10 days; 20 tablet. Ibuprofen 800 mg Oral Tablet - take 1 tablet by ORAL route every 12 hours As needed take with food; 20 tablet. - Medication Reconciliation Form, Thank You Letter, Antibiotic Education, Prescription Opioid Use, Work release form form. - Follow up: Private Physician; When: 1 week; Reason: Recheck today's complaints, Continuance of care, Re-evaluation by your physician. - Problem is new. - Symptoms have improved. Signatures: Dileep Avila PA PA jr8 Segun Coreas RN RN mg2 Corrections: (The following items were deleted from the chart) 17:20 17:12 ED course: Will start patient on NSAIDs and ABX. No discrete abscess identified jrGorge on exam. Recommended f/u with dentist at this point. If worse to come back for further evaluation and possible facial CT . jr8 17:34 17:19 03/17/2019 17:19 Discharged to Home. Impression: Periapical abscess without mg2 sinus. Condition is Stable. Forms are Medication Reconciliation Form, Thank You Letter, Antibiotic Education, Prescription Opioid Use. Follow up: Private Physician; When: 1 week; Reason: Recheck today's complaints, Continuance of care, Re-evaluation by your physician. Problem is new. Symptoms have improved. jr8
== END 2019-03-17 17:34 | disposition home or self-care (01) ==
LOC: ER 16:54
DX: K04.7 Periapical abscess without sinus (principal); Z72.0 Tobacco use
CPT/HCPCS: 96372; 99283; J1100

== ENCOUNTER 2019-04-29 14:06 | Emergency (ER) | payer SELFPAY ==
[2019-04-29] MEDS ORDERED: IBUPROFEN 400 MG TAB ONE (14:27)
--- NOTE | 2019-04-29 15:14 | ER ---
Nurse's Notes [facility] Name: Makenzie Gomez Age: 23 yrs Sex: Female : 1995 Arrival Date: 04/29/2019 Time: 14:07 Bed 20 Private MD: Diagnosis: Acute pharyngitis Presentation: 04/29 14:15 Presenting complaint: Patient states: Sore throat, body aches and "migraines" that ss began 5 days ago. Transition of care: patient was not received from another setting of care. Onset of symptoms was April 24, 2019. Risk Assessment: Do you want to hurt yourself or someone else? Patient reports no desire to harm self or others. Initial Sepsis Screen: Does the patient meet any 2 criteria? No. Patient's initial sepsis screen is negative. Does the patient have a suspected source of infection? No. Patient's initial sepsis screen is negative. Care prior to arrival: None. 14:15 Method Of Arrival: Ambulatory ss 14:15 Acuity: LAUREN 4 ss Historical: - Allergies: 14:17 No Known Allergies; ss - Home Meds: 14:17 None [Active]; ss - PMHx: 14:17 Ovarian cysts; ss - PSHx: 14:17 None; ss - Immunization history:: Adult Immunizations up to date. - Social history:: Smoking status: Patient/guardian denies using tobacco. - Ebola Screening: : Patient denies exposure to infectious person Patient denies travel to an Ebola-affected area in the 21 days before illness onset. Screenin:25 Abuse screen: Denies threats or abuse. Denies injuries from another. Nutritional sv screening: No deficits noted. Tuberculosis screening: No symptoms or risk factors identified. Fall Risk None identified. Assessment: 14:25 General: Appears in no apparent distress. uncomfortable, slender, Behavior is calm, sv cooperative, appropriate for age. General: Reports body aches. Pain: Complains of pain in throat. Neuro: Level of Consciousness is awake, alert, obeys commands, Oriented to person, place, time, situation, Gait is steady. Respiratory: Airway is patent Respiratory effort is even, unlabored, Respiratory pattern is regular, symmetrical. EENT: Oral mucosa is moist. Throat is clear. Derm: Skin is pink, warm \\T\\ dry. 15:19 Reassessment: Patient appears in no apparent distress at this time. No changes from sv previously documented assessment. Patient and/or family updated on plan of care and expected duration. Pain level reassessed. Patient is alert, oriented x 3, equal unlabored respirations, skin warm/dry/pink. Vital Signs: 14:14 BP 128 / 73; Pulse 86; Resp 14; Temp 98.2(O); Pulse Ox 100% on R/A; Weight 54.43 kg; ss Height 5 ft. 2 in. (157.48 cm); Pain 8/10; 14:14 Body Mass Index 21.95 (54.43 kg, 157.48 cm) ED Course: 14:07 Patient arrived in ED. am2 14:11 Pancho Rodriguez PA is PHCP. [facility] 14:11 Jose Barnhart MD is Attending Physician. [facility] 14:14 Arm band placed on right wrist. 14:16 Triage completed. 14:25 Breann Narayanan RN is Primary Nurse. sv 14:25 Patient has correct armband on for positive identification. Bed in low position. Call sv light in reach. Door closed. Head of bed elevated. 14:32 Flu and/or RSV swab sent to lab. Strep swab sent to lab. sv 14:35 Awaiting lab results. sv 14:54 Throat Culture Sent. sv 15:19 No provider procedures requiring assistance completed. Patient did not have IV access sv during this emergency room visit. Administered Medications: 14:33 Drug: Ibuprofen 400 mg Route: PO; sv 15:20 Follow up: Response: No adverse reaction sv Outcome: 15:13 Discharge ordered by . [facility] 15:19 Discharged to home ambulatory, with family. sv 15:19 Condition: stable 15:19 Discharge instructions given to patient, Instructed on discharge instructions, follow up and referral plans. medication usage, Demonstrated understanding of instructions, follow-up care, medications, Prescriptions given X 1. 15:20 Patient left the ED. sv Signatures: Breann Narayanan, RN KATHRIN Pancho Rodriguez PA PA jmm Smirch, Shelby, RN RN Suze Okeefe am2
--- NOTE | 2019-04-29 15:14 | EDPHYS ---
Physician Documentation [facility] Name: Makenzie Gomez Age: 23 yrs Sex: Female : 1995 Arrival Date: 04/29/2019 Time: 14:07 Bed 20 Private MD: ED Physician Jose Barnhart HPI: 04/29 14:58 This 23 yrs old Female presents to ER via Ambulatory with complaints of Sore jmm Throat, Headache, bodyache. 14:58 The patient presents with sore throat. Onset: The symptoms/episode began/occurred jmm gradually, 2 day(s) ago. Modifying factors: The symptoms are alleviated by nothing, the symptoms are aggravated by nothing. Associated signs and symptoms: Pertinent positives: chills, fever, headache, rhinorrhea, Pertinent negatives. Patient complains of fever, headache, sore throat beginning 2 days ago. Denies vomiting, denies cough. . Historical: - Allergies: 14:17 No Known Allergies; ss - Home Meds: 14:17 None [Active]; ss - PMHx: 14:17 Ovarian cysts; ss - PSHx: 14:17 None; ss - Immunization history:: Adult Immunizations up to date. - Social history:: Smoking status: Patient/guardian denies using tobacco. - Ebola Screening: : Patient denies exposure to infectious person Patient denies travel to an Ebola-affected area in the 21 days before illness onset. ROS: 14:58 Constitutional: Positive for fever. jmm 14:58 ENT: Positive for Gum pain sore throat. 14:58 Neuro: Positive for headache. 14:58 All other systems are negative. Exam: 14:58 Constitutional: This is a well developed, well nourished patient who is awake, alert, jmm and in no acute distress. Head/Face: atraumatic. Eyes: EOMI, no conjunctival erythema appreciated 14:58 Neck: Trachea midline, Supple Chest/axilla: Normal chest wall appearance and motion. 14:58 Abdomen/GI: Non distended, soft Skin: General appearance color normal MS/ Extremity: Moves all extremities, no obvious deformities appreciated, no edema noted to the lower extremities Neuro: Awake and alert, normal gait Psych: Behavior is normal, Mood is normal, Patient is cooperative and pleasant 14:58 ENT: TM's: erythema, that is mild, bilaterally, Posterior pharynx: erythema, that is mild. 14:58 Cardiovascular: Rate: normal, Rhythm: regular. 14:58 Respiratory: the patient does not display signs of respiratory distress, Respirations: normal, Breath sounds: are clear throughout. 14:58 Abdomen/GI: Inspection: abdomen appears normal, Bowel sounds: normal, Palpation: abdomen is soft and non-tender. Vital Signs: 14:14 BP 128 / 73; Pulse 86; Resp 14; Temp 98.2(O); Pulse Ox 100% on R/A; Weight 54.43 kg; ss Height 5 ft. 2 in. (157.48 cm); Pain 8/10; 14:14 Body Mass Index 21.95 (54.43 kg, 157.48 cm) ss MDM: 14:21 Patient medically screened. [facility] 15:12 Data reviewed: vital signs, nurses notes. Counseling: I had a detailed discussion with mike the patient and/or guardian regarding: the historical points, exam findings, and any diagnostic results supporting the discharge/admit diagnosis, lab results, the need for outpatient follow up, to return to the emergency department if symptoms worsen or persist or if there are any questions or concerns that arise at home. 04/29 14:08 Order name: Flu; Complete Time: 14:58 snw 04/29 14:08 Order name: Strep; Complete Time: 14:51 snw 04/29 14:52 Order name: Throat Culture EDMS Administered Medications: 14:33 Drug: Ibuprofen 400 mg Route: PO; sv 15:20 Follow up: Response: No adverse reaction sv Disposition: 17:24 Co-signature as Attending Physician, Jose Barnhart MD. Disposition: 04/29/19 15:13 Discharged to Home. Impression: Acute pharyngitis. - Condition is Stable. - Discharge Instructions: Pharyngitis. - Prescriptions for Amoxicillin 875 mg Oral Tablet - take 1 tablet by ORAL route every 12 hours for 10 days; 20 tablet. - Work release form, Medication Reconciliation Form, Thank You Letter, Antibiotic Education, Prescription Opioid Use form. - Follow up: Private Physician; When: 2 - 3 days; Reason: Recheck today's complaints, Continuance of care, Re-evaluation by your physician. Signatures: Dispatcher MedHo EDBreann Palmer RN Pancho Mtz PA PA jmm Smirch, Shelby, RN RN ss Jose Barnhart MD MD gs Corrections: (The following items were deleted from the chart) 15:20 15:13 04/29/2019 15:13 Discharged to Home. Impression: Acute pharyngitis. Condition is sv Stable. Forms are Medication Reconciliation Form, Thank You Letter, Antibiotic Education, Prescription Opioid Use. Follow up: Private Physician; When: 2 - 3 days; Reason: Recheck today's complaints, Continuance of care, Re-evaluation by your physician. mike
[2019-04-29 15:25] VITALS: BP 128/73; TEMP 98.2; O2SAT 100
== END 2019-04-29 15:20 | disposition home or self-care (01) ==
LOC: ER 14:06
DX: J02.9 Acute pharyngitis, unspecified (principal)
CPT/HCPCS: 87070; 87081; 87804; 99283

== ENCOUNTER 2019-09-05 08:28 | Emergency (ER) | payer SELFPAY ==
--- OUTSIDE RECORDS SUMMARY | 2019-09-05 08:31 | XMS REPORT ---
:1995 [facility] [address] [place] [id number] Care Team Providers Name Role Phone Unavailable Unavailable Unavailable Problems This patient has no known problems. Allergies, Adverse Reactions, Alerts This patient has no known allergies or adverse reactions. Medications This patient has no known medications.
[2019-09-05 09:14] LABS: Urine Blood NEGATIVE (NEG); Urine Glucose NEGATIVE (NEG); Urine Protein NEGATIVE (NEG); Urine Specific Gravity 1.025 (1.005-1.030); Urine pH 7.5 (5.0-7.0)
[2019-09-05] MEDS ORDERED: ACETAMINOPHEN 500 MG TAB ONE (09:14)
--- NOTE | 2019-09-05 10:17 | ER ---
Nurse's Notes [facility] Name: Makenzie Gomez Age: 23 yrs Sex: Female : 1995 Arrival Date: 09/05/2019 Time: 08:30 Bed 7 Private MD: Diagnosis: Acute bronchitis;Acute pharyngitis;Pleurisy Presentation: 09/05 08:36 Presenting complaint: Patient states: sore throat, cough, productive cough and pain ch when coughing since yesterday morning. Transition of care: patient was not received from another setting of care. Onset of symptoms was September 04, 2019 at 07:00. Risk Assessment: Do you want to hurt yourself or someone else? Patient reports no desire to harm self or others. Initial Sepsis Screen: Does the patient meet any 2 criteria? No. Patient's initial sepsis screen is negative. Does the patient have a suspected source of infection? No. Patient's initial sepsis screen is negative. Care prior to arrival: None. 08:36 Method Of Arrival: Ambulatory 08:36 Acuity: LAUREN 3 ch Triage Assessment: 08:37 General: Appears in no apparent distress. comfortable, Behavior is calm, cooperative, ch appropriate for age. Pain: Complains of pain in top of head, forehead, right eye, left eye, left frontal area, left temporal area, right temporal area and chest Pain currently is 9 out of 10 on a pain scale. EENT: Nares with drainage noted Oral mucosa is moist. Throat is reddened has enlarged tonsils Reports nasal congestion nasal discharge that is green that is yellow. Neuro: No deficits noted. Respiratory: Reports cough that is productive, persistent pain with cough Airway is patent Respiratory effort is even, unlabored, Breath sounds with wheezes in right posterior middle lobe and right posterior lower lobe fine wheezes. GI: No signs and/or symptoms were reported involving the gastrointestinal system. Derm: Skin is pink, warm \T\ dry. 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 - Coronavirus screen:: The patient has NOT traveled to [place] in the past 14 days. The patient has NOT had contact with known/suspected case of Coronavirus?. - Social history:: Smoking status: Patient reports the use of cigarette tobacco products, smokes one-half pack cigarettes per day, Patient uses alcohol, but reports only rare drinking. Patient/guardian denies using street drugs. - Ebola Screening: : Patient negative for fever greater than or equal to 101.5 degrees Fahrenheit, and additional compatible Ebola Virus Disease symptoms Patient denies exposure to infectious person Patient denies travel to an Ebola-affected area in the 21 days before illness onset No symptoms or risks identified at this time. Screenin:41 Abuse screen: Denies threats or abuse. Denies injuries from another. Nutritional ch screening: No deficits noted. Tuberculosis screening: No symptoms or risk factors identified. Fall Risk None identified. Assessment: 08:41 Respiratory: Reports cough that is productive, Airway is patent Trachea midline ch Respiratory effort is even, unlabored. 09:47 Reassessment: Patient appears in no apparent distress at this time. Patient and/or ch family updated on plan of care and expected duration. Pain level reassessed. Patient is alert, oriented x 3, equal unlabored respirations, skin warm/dry/pink. pt states she feels a little better. Patient states feeling better. Respiratory: Breath sounds are clear bilaterally. Parent/caregiver reports the patient having cough that is productive, pain with cough. 10:25 Reassessment: Patient appears in no apparent distress at this time. awaiting provider ch to speak with pt prior to discharge. Vital Signs: 08:37 BP 119 / 76; Pulse 102; Resp 16; Pulse Ox 98% on R/A; Weight 63.5 kg; Height 5 ft. 2 in. (157.48 cm); Pain 2/10; 08:42 Temp 100(O); ch 09:47 BP 116 / 62; Pulse 93; Resp 20; Temp 99.3(O); Pulse Ox 99% on R/A; Pain 2/10; ch 10:25 BP 106 / 62; Pulse 90; Resp 14; Temp 99; Pulse Ox 99% on R/A; Pain 2/10; ch 08:37 Body Mass Index 25.61 (63.50 kg, 157.48 cm) ED Course: 08:30 Patient arrived in ED. rg4 08:30 Kim Louis RN is Primary Nurse. 08:30 Dileep Avila PA is PHCP. jr8 08:30 Gordo Mansfield MD is Attending Physician. jr8 08:37 Triage completed. 08:37 Arm band placed on left wrist. Patient placed in an exam room, on a stretcher. 08:41 Patient has correct armband on for positive identification. Bed in low position. Call light in reach. Side rails up X 1. Adult w/ patient. 08:41 No provider procedures requiring assistance completed. 08:51 Strep Sent. 08:51 Flu Sent. 09:47 No apparent distress. Resting quietly. Appears to be sleeping. 10:33 Patient did not have IV access during this emergency room visit. Administered Medications: 09:12 Drug: Tylenol 1000 mg Route: PO; 10:08 Follow up: Response: No adverse reaction; Pain is decreased Outcome: 10:16 Discharge ordered by . jr8 10:25 Discharged to home ambulatory. 10:25 Condition: improved 10:25 Discharge instructions given to patient, Instructed on discharge instructions, follow up and referral plans. medication usage, Demonstrated understanding of instructions, follow-up care, medications, Prescriptions given X 3. 10:33 Patient left the ED. Signatures: Kim Louis RN RN Dileep Avila PA PA jr8 ArenSandroi rg4
--- NOTE | 2019-09-05 10:17 | EDPHYS ---
Physician Documentation [facility] Name: Makenzie Gomez Age: 23 yrs Sex: Female : 1995 Arrival Date: 09/05/2019 Time: 08:30 Bed 7 Private MD: ED Physician Gordo Mansfield HPI: 09/05 09:05 This 23 yrs old Female presents to ER via Ambulatory with complaints of Sore jr8 Throat. 09:05 The patient presents with sore throat. The patient describes throat pain as constant. jr8 Onset: The symptoms/episode began/occurred acutely, yesterday. Severity of symptoms: At their worst the symptoms were moderate, in the emergency department the symptoms are unchanged. Modifying factors: The symptoms are alleviated by nothing, the symptoms are aggravated by swallowing. Associated signs and symptoms: Pertinent positives: cough, fever, flu-like symptoms, headache. The patient has not experienced similar symptoms in the past. The patient has not recently seen a physician. 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 - Coronavirus screen:: The patient has NOT traveled to [place] in the past 14 days. The patient has NOT had contact with known/suspected case of Coronavirus?. - Social history:: Smoking status: Patient reports the use of cigarette tobacco products, smokes one-half pack cigarettes per day, Patient uses alcohol, but reports only rare drinking. Patient/guardian denies using street drugs. - Ebola Screening: : Patient negative for fever greater than or equal to 101.5 degrees Fahrenheit, and additional compatible Ebola Virus Disease symptoms Patient denies exposure to infectious person Patient denies travel to an Ebola-affected area in the 21 days before illness onset No symptoms or risks identified at this time. ROS: 09:05 Eyes: Negative for injury, pain, redness, and discharge, Neck: Negative for injury, jr8 pain, and swelling, Abdomen/GI: Negative for abdominal pain, nausea, vomiting, diarrhea, and constipation, Back: Negative for injury and pain, MS/Extremity: Negative for injury and deformity, Skin: Negative for injury, rash, and discoloration. 09:05 Constitutional: Positive for body aches, chills, fever. 09:05 ENT: Positive for sore throat. 09:05 Cardiovascular: Positive for chest pain, with cough. 09:05 Respiratory: Positive for cough, Negative for dyspnea on exertion, shortness of breath, sputum production, wheezing. 09:05 Neuro: Positive for headache. Exam: 09:05 Eyes: Pupils equal round and reactive to light, extra-ocular motions intact. Lids and jr8 lashes normal. Conjunctiva and sclera are non-icteric and not injected. Cornea within normal limits. Periorbital areas with no swelling, redness, or edema. ENT: Nares patent. No nasal discharge, no septal abnormalities noted. Tympanic membranes are normal and external auditory canals are clear. Oropharynx with redness. No swelling, or masses, exudates, or evidence of obstruction, uvula midline. Mucous membranes moist. Neck: Trachea midline, no thyromegaly or masses palpated, and no cervical lymphadenopathy. Supple, full range of motion without nuchal rigidity, or vertebral point tenderness. No Meningismus. Cardiovascular: Regular rate and rhythm with a normal S1 and S2. No gallops, murmurs, or rubs. Normal PMI, no JVD. No pulse deficits. Respiratory: Lungs have equal breath sounds bilaterally, clear to auscultation and percussion. No rales, rhonchi or wheezes noted. No increased work of breathing, no retractions or nasal flaring. Abdomen/GI: Soft, non-tender, with normal bowel sounds. No distension or tympany. No guarding or rebound. No evidence of tenderness throughout. Back: No spinal tenderness. No costovertebral tenderness. Full range of motion. Skin: Warm, dry with normal turgor. Normal color with no rashes, no lesions, and no evidence of cellulitis. MS/ Extremity: Pulses equal, no cyanosis. Neurovascular intact. Full, normal range of motion. Neuro: Awake and alert, GCS 15, oriented to person, place, time, and situation. Cranial nerves II-XII grossly intact. Motor strength 5/5 in all extremities. Sensory grossly intact. Cerebellar exam normal. Normal gait. Vital Signs: 08:37 BP 119 / 76; Pulse 102; Resp 16; Pulse Ox 98% on R/A; Weight 63.5 kg; Height 5 ft. 2 ch in. (157.48 cm); Pain 2/10; 08:42 Temp 100(O); ch 09:47 BP 116 / 62; Pulse 93; Resp 20; Temp 99.3(O); Pulse Ox 99% on R/A; Pain 2/10; ch 10:25 BP 106 / 62; Pulse 90; Resp 14; Temp 99; Pulse Ox 99% on R/A; Pain 2/10; ch 08:37 Body Mass Index 25.61 (63.50 kg, 157.48 cm) ch MDM: 08:30 Patient medically screened. [facility] 10:13 Differential diagnosis: bronchitis, group A strep tonsillitis, influenza, jr8 mononucleosis, pharyngitis, upper respiratory infection, viral syndrome. Data reviewed: vital signs, nurses notes, lab test result(s), radiologic studies, plain films. Data interpreted: Pulse oximetry: on room air is 99 %. Interpretation: normal. Counseling: I had a detailed discussion with the patient and/or guardian regarding: the historical points, exam findings, and any diagnostic results supporting the discharge/admit diagnosis, lab results, radiology results, the need for outpatient follow up, a family practitioner, to return to the emergency department if symptoms worsen or persist or if there are any questions or concerns that arise at home. Response to treatment: the patient's symptoms have mildly improved after treatment. 09/05 08:42 Order name: Flu 09/05 08:42 Order name: Strep 09/05 09:04 Order name: Urine Dipstick--Ancillary (enter results) 09/05 09:04 Order name: Urine --Ancillary (enter results) 09/05 09:08 Order name: Group A Streptococcus Rapid Sc; Complete Time: 09:11 EDIL 09/05 09:14 Order name: Urine --Ancillary; Complete Time: 09:13 [facility] 09/05 08:56 Order name: XRAY Chest (1 view) [facility] 09/05 08:56 Order name: Urine Test (obtain specimen); Complete Time: 08:56 [facility] 09/05 08:56 Order name: Urine Dipstick-Ancillary (obtain specimen); Complete Time: 08:56 [facility] 09/05 09:14 Order name: Urine Dipstick-Ancillary; Complete Time: 09:13 [facility]IL 09/05 09:15 Order name: Influenza Screen (A ; Complete Time: 16 EDMS Administered Medications: 09:12 Drug: Tylenol 1000 mg Route: PO; 10:08 Follow up: Response: No adverse reaction; Pain is decreased ch Disposition: 09/06 08:26 Co-signature as Attending Physician, Gordo Mansfield MD I agree with the assessment and [facility] plan of care. Disposition: 09/05/19 10:16 Discharged to Home. Impression: Acute bronchitis, Acute pharyngitis, Pleurisy. - Condition is Stable. - Discharge Instructions: Acute Bronchitis, Adult, Pharyngitis, Pleurisy. - Prescriptions for Ibuprofen 800 mg Oral Tablet - take 1 tablet by ORAL route every 12 hours As needed take with food; 20 tablet. Medrol (Matias) 4 mg Oral Tablets, Dose Pack - take 1 tablet by ORAL route as directed - follow package instructions; 1 packet. Guaifenesin AC 10- 100 mg/5 mL Oral Liquid - take 10 milliliter by ORAL route every 4 hours As needed; 240 milliliter. - Work release form, Medication Reconciliation Form, Thank You Letter, Antibiotic Education, Prescription Opioid Use form. - Follow up: Private Physician; When: 5 - 6 days; Reason: Recheck today's complaints, Continuance of care, Re-evaluation by your physician. - Problem is new. - Symptoms have improved. Signatures: Dispatcher [employer] EDIL Kim Louis RN RN ch Anderson, Corey, MD MD cha Roszak, Josh, PA PA jr8 Corrections: (The following items were deleted from the chart) 09/05 10:33 10:16 09/05/2019 10:16 Discharged to Home. Impression: Acute bronchitis; Acute ch pharyngitis; Pleurisy. Condition is Stable. Forms are Work release form, Medication Reconciliation Form, Thank You Letter, Antibiotic Education, Prescription Opioid Use. Follow up: Private Physician; When: 5 - 6 days; Reason: Recheck today's complaints, Continuance of care, Re-evaluation by your physician. Problem is new. Symptoms have improved. jr8
--- NOTE | 2019-09-05 10:24 | RAD REPORT ---
EXAM DESCRIPTION: RAD - Chest Single View - 09/05/2019 9:45 am CLINICAL HISTORY: CHEST PAIN COMPARISON: No comparisons TECHNIQUE: AP portable chest image was obtained 09/05/2019 9:45 am . FINDINGS: Lungs are clear. Heart and vasculature are normal. No measurable pleural effusion and no p neumothorax. No acute bony abnormality seen. No acute aortic findings suspected. IMPRESSION: No acute cardiopulmonary process.
[2019-09-05 10:51] VITALS: O2SAT 99
[2019-09-05 10:52] VITALS: BP 106/62; TEMP 99
== END 2019-09-05 10:33 | disposition home or self-care (01) ==
LOC: ER 08:28
DX: J20.9 Acute bronchitis, unspecified (principal); R09.1 Pleurisy; F17.210 Nicotine dependence, cigarettes, uncomplicated
CPT/HCPCS: 71045; 81003; 81025; 87070; 87081; 87804; 99283

== ENCOUNTER 2019-09-26 11:15 | Emergency (ER) | payer SELFPAY ==
--- OUTSIDE RECORDS SUMMARY | 2019-09-26 11:19 | XMS REPORT ---
:1995 [facility] Address [facility] [address] Gil [address] [place] [address] Care Team Providers Name Role Phone Unavailable Unavailable Unavailable Problems This patient has no known problems. Allergies, Adverse Reactions, Alerts This patient has no known allergies or adverse reactions. Medications This patient has no known medications.
[2019-09-26] MEDS ORDERED: predniSONE 20 MG TAB ONE (12:23)
[2019-09-26] MEDS ORDERED: ALBUTEROL 2.5 MG/3 ML NEB SOL ONE (12:23)
--- NOTE | 2019-09-26 13:09 | RAD REPORT ---
EXAM DESCRIPTION: RAD - Chest Pa And Lat (2 Views) - 09/26/2019 12:30 pm CLINICAL HISTORY: COUGH Chest pain. COMPARISON: Chest Single View dated 09/05/2019 FINDINGS: The lungs are clear. The heart is normal in size. No displaced fractures. IMPRESSION: No acute or concerning finding suspected.
--- NOTE | 2019-09-26 13:17 | ER ---
Nurse's Notes [facility] Name: Makenzie Gomez Age: 23 yrs Sex: Female : 1995 Arrival Date: 09/26/2019 Time: 11:17 Bed 11 Private MD: Diagnosis: Bronchitis, not specified as acute or chronic Presentation: 09/25 11:26 Chief complaint: Patient states: Cough, congestion x 2 weeks, states, " I can't even ph eat because my throat feels so irritated." Also reports nasal discharge and diarrhea, denies fever, N/V. Coronavirus screen: The patient has NOT traveled to a country currently being monitored by the [facility] within the last 14 days. The patient has NOT had contact with any known and/or suspected case of coronavirus. Ebola Screen: No symptoms or risks identified at this time. Initial Sepsis Screen: Does the patient meet any 2 criteria? No. Patient's initial sepsis screen is negative. Does the patient have a suspected source of infection? No. Patient's initial sepsis screen is negative. Risk Assessment: Do you want to hurt yourself or someone else? Patient reports no desire to harm self or others. 11:26 Method Of Arrival: Ambulatory ph 11:26 Acuity: LAUREN 4 ph Historical: - Allergies: 11:28 No Known Allergies; ph - Home Meds: 11:28 None [Active]; ph - PMHx: 11:28 Ovarian cysts; ph - PSHx: 11:28 None; ph - Immunization history:: Adult Immunizations not up to date. - Social history:: Smoking status: Patient reports the use of cigarette tobacco products, denies chronic smoking, but will smoke occasionally. Screenin:00 Abuse screen: Denies threats or abuse. Denies injuries from another. Nutritional ph screening: No deficits noted. Tuberculosis screening: No symptoms or risk factors identified. Fall Risk None identified. Assessment: 12:00 General: Appears in no apparent distress. uncomfortable, slender, Behavior is calm, ph cooperative, appropriate for age. Pain: Complains of pain in throat. Neuro: Level of Consciousness is awake, alert, obeys commands, Oriented to person, place, time, situation. Cardiovascular: Capillary refill < 3 seconds in bilateral fingers. Respiratory: Reports shortness of breath cough that is Airway is patent Respiratory effort is even, unlabored, Respiratory pattern is regular, symmetrical, Breath sounds are coarse in mediastinum. GI: No signs and/or symptoms were reported involving the gastrointestinal system. Derm: Skin is intact, is healthy with good turgor, Skin is pink, warm \\T\\ dry. Musculoskeletal: Circulation, motion, and sensation intact. Range of motion: intact in all extremities. Vital Signs: 11:26 BP 128 / 75; Pulse 102; Resp 18; Temp 98.4(O); Pulse Ox 99% on R/A; Weight 61.23 kg; ph Height 5 ft. 2 in. (157.48 cm); 12:30 BP 118 / 78; Pulse 99; Resp 18; Temp 98.0; Pulse Ox 99% on R/A; ph 11:26 Body Mass Index 24.69 (61.23 kg, 157.48 cm) ph ED Course: 11:17 Patient arrived in ED. ag5 11:28 Triage completed. ph 11:29 Arm band placed on Patient placed in an exam room. ph 11:37 Chilo Glaser NP is PHCP. pm1 11:37 Nino East MD is Attending Physician. pm1 12:00 Patient has correct armband on for positive identification. Bed in low position. Call ph light in reach. Side rails up X 1. Pulse ox on. Door closed. Noise minimized. Warm blanket given. 12:11 Nancy Perera, RN is Primary Nurse. ph 12:29 Chest Pa And Lat (2 Views) XRAY In Process Unspecified. EDMS 13:45 No provider procedures requiring assistance completed. Patient did not have IV access ph during this emergency room visit. Administered Medications: 12:30 Drug: Albuterol 2.5 mg Route: Inhalation; ph 13:17 Follow up: Response: No adverse reaction ph 12:30 Drug: predniSONE 60 mg Route: PO; ph 13:18 Follow up: Response: No adverse reaction ph Outcome: 13:16 Discharge ordered by . pm1 13:45 Patient left the ED. ph 13:45 Discharged to home ambulatory. ph 13:45 Condition: good 13:45 Discharge instructions given to patient, Instructed on discharge instructions, follow up and referral plans. medication usage, Demonstrated understanding of instructions, follow-up care, medications, Prescriptions given X 3. Signatures: Dispatcher [employer] EDMS David Pereraia, RN RN ph Chilo Glaser, SUPERVISOR WET ROOM SUPERVISOR WET ROOM pm1 Neelima Greenberg 5
--- NOTE | 2019-09-26 13:17 | EDPHYS ---
Physician Documentation [facility] Name: Makenzie Gomez Age: 23 yrs Sex: Female : 1995 Arrival Date: 09/26/2019 Time: 11:17 Bed 11 Private MD: ED Physician Nino East HPI: 09/25 11:56 This 23 yrs old Female presents to ER via Ambulatory with complaints of Chest pm1 Congestion. 11:56 The patient or guardian reports cough, with productive sputum. pm1 11:56 Onset: The symptoms/episode began/occurred 2 week(s) ago. Severity of symptoms: in the pm1 emergency department the symptoms are unchanged. Modifying factors: The symptoms are alleviated by friend's albuterol treatment at onset of symptoms, but used only once the symptoms are aggravated by nothing. Associated signs and symptoms: Pertinent negatives: chest pain, diarrhea, fever, sore throat, vomiting. It is unknown whether or not the patient has recently seen a physician. Historical: - Allergies: 11:28 No Known Allergies; ph - Home Meds: 11:28 None [Active]; ph - PMHx: 11:28 Ovarian cysts; ph - PSHx: 11:28 None; ph - Immunization history:: Adult Immunizations not up to date. - Social history:: Smoking status: Patient reports the use of cigarette tobacco products, denies chronic smoking, but will smoke occasionally. ROS: 11:56 Constitutional: Negative for fever, chills, and weight loss, Eyes: Negative for injury, pm1 pain, redness, and discharge, ENT: Negative for injury, pain, and discharge, Neck: Negative for injury, pain, and swelling, Cardiovascular: Negative for chest pain, palpitations, and edema. 11:56 Abdomen/GI: Negative for abdominal pain, nausea, vomiting, diarrhea, and constipation, Back: Negative for injury and pain, MS/Extremity: Negative for injury and deformity, Skin: Negative for injury, rash, and discoloration. 11:56 Neuro: Negative for headache, weakness, numbness, tingling, and seizure. 11:56 Respiratory: Positive for cough, Negative for shortness of breath, wheezing. Exam: 11:56 Constitutional: This is a well developed, well nourished patient who is awake, alert, pm1 and in no acute distress. Head/Face: Normocephalic, atraumatic. ENT: Nares patent. No nasal discharge, no septal abnormalities noted. Tympanic membranes are normal and external auditory canals are clear. Oropharynx with no redness, swelling, or masses, exudates, or evidence of obstruction, uvula midline. Mucous membranes moist. Neck: Trachea midline, no thyromegaly or masses palpated, and no cervical lymphadenopathy. Supple, full range of motion without nuchal rigidity, or vertebral point tenderness. No Meningismus. Chest/axilla: Normal chest wall appearance and motion. Nontender with no deformity. No lesions are appreciated. Cardiovascular: Regular rate and rhythm with a normal S1 and S2. No gallops, murmurs, or rubs. Normal PMI, no JVD. No pulse deficits. 11:56 Abdomen/GI: Soft, non-tender, with normal bowel sounds. No distension or tympany. No guarding or rebound. No evidence of tenderness throughout. Back: No spinal tenderness. No costovertebral tenderness. Full range of motion. Skin: Warm, dry with normal turgor. Normal color with no rashes, no lesions, and no evidence of cellulitis. MS/ Extremity: Pulses equal, no cyanosis. Neurovascular intact. Full, normal range of motion. 11:56 Respiratory: the patient does not display signs of respiratory distress, Respirations: normal, Breath sounds: are clear throughout. 11:56 Neuro: Orientation: is normal, Motor: is normal, moves all fours, Gait: is steady, at a normal pace, without difficulty. Vital Signs: 11:26 BP 128 / 75; Pulse 102; Resp 18; Temp 98.4(O); Pulse Ox 99% on R/A; Weight 61.23 kg; ph Height 5 ft. 2 in. (157.48 cm); 12:30 BP 118 / 78; Pulse 99; Resp 18; Temp 98.0; Pulse Ox 99% on R/A; ph 11:26 Body Mass Index 24.69 (61.23 kg, 157.48 cm) ph MDM: 11:37 Patient medically screened. pm1 13:13 Data reviewed: vital signs. Data interpreted: Pulse oximetry: on room air is 99 %. pm1 Interpretation: normal. Counseling: I had a detailed discussion with the patient and/or guardian regarding: the historical points, exam findings, and any diagnostic results supporting the discharge/admit diagnosis, lab results, radiology results, the need for outpatient follow up, to return to the emergency department if symptoms worsen or persist or if there are any questions or concerns that arise at home. 09/25 11:55 Order name: Flu; Complete Time: 12:54 pm1 09/25 11:55 Order name: Strep; Complete Time: 12:54 pm1 09/25 11:55 Order name: Chest Pa And Lat (2 Views) XRAY; Complete Time: 13:13 pm1 09/25 12:52 Order name: Throat Culture EDMS Administered Medications: 12:30 Drug: Albuterol 2.5 mg Route: Inhalation; ph 13:17 Follow up: Response: No adverse reaction ph 12:30 Drug: predniSONE 60 mg Route: PO; ph 13:18 Follow up: Response: No adverse reaction ph Disposition: 14:19 Co-signature as Attending Physician, Nino East MD. rn Disposition: 09/26/19 13:16 Discharged to Home. Impression: Bronchitis, not specified as acute or chronic. - Condition is Stable. - Discharge Instructions: Acute Bronchitis, Adult, How to Use an Inhaler. - Prescriptions for Tessalon Perles 100 mg Oral Capsule - take 1 capsule by ORAL route every 8 hours As needed; 15 capsule. Medrol (Matias) 4 mg Oral Tablets, Dose Pack - take 1 tablet by ORAL route as directed - follow package instructions; 1 packet. Albuterol Sulfate 90 mcg/actuation - inhale 1-2 puff by INHALATION route every 4-6 hours; 1 Inhaler. - Work release form, Medication Reconciliation Form, Thank You Letter, Antibiotic Education, Prescription Opioid Use form. - Follow up: Emergency Department; When: As needed; Reason: Worsening of condition. Follow up: Private Physician; When: 2 - 3 days; Reason: Recheck today's complaints, Continuance of care, Re-evaluation by your physician. - Problem is new. - Symptoms have improved. Signatures: Dispatcher [employer] EDMS Nino East MD MD rn Hall, Patricia, RN RN ph Marinas, Patrick, SARWAT FACTORY ASSEMBLER pm1 Corrections: (The following items were deleted from the chart) 13:45 13:16 09/26/2019 13:16 Discharged to Home. Impression: Bronchitis, not specified as ph acute or chronic. Condition is Stable. Forms are Medication Reconciliation Form, Thank You Letter, Antibiotic Education, Prescription Opioid Use. Follow up: Emergency Department; When: As needed; Reason: Worsening of condition. Follow up: Private Physician; When: 2 - 3 days; Reason: Recheck today's complaints, Continuance of care, Re-evaluation by your physician. Problem is new. Symptoms have improved. pm1
[2019-09-26 13:51] VITALS: BP 128/75; TEMP 98.4; O2SAT 99
== END 2019-09-26 13:45 | disposition home or self-care (01) ==
LOC: ER 11:15
DX: J40 Bronchitis, not specified as acute or chronic (principal); Z72.0 Tobacco use
CPT/HCPCS: 71046; 87070; 87081; 87804; 99284; J7512

== ENCOUNTER 2020-08-14 08:47 | Emergency (ER) | payer SELFPAY ==
[2020-08-14] MEDS ORDERED: KETOROLAC 30 MG/ML INJ ONE (09:31)
[2020-08-14 09:43] LABS: Absolute Lymphocytes (CBC) 1.5 K/uL (0.7-4.9); Basophils % 0.4 % (0-1.3); Hematocrit 40.9 % (36.0-45.0); Lymphocytes % 13.3 % (15.3-44.8); MPV 8.4 fL (7.6-11.3); RBC Red Blood Cell Count 4.78 M/uL (3.86-4.86)
[2020-08-14 09:56] LABS: Potassium 3.8 mmol/L (3.5-5.1)
--- OUTSIDE RECORDS SUMMARY | 2020-08-14 10:10 | XMS REPORT | Continuity of Care Document ---
:1995 Author Organization [facility] t Address [address] [place] [address] Dr. Gil [address] [place] [id number] Care Team Providers Name Role Phone Unavailable Unavailable Unavailable Problems This patient has no known problems. Allergies, Adverse Reactions, Alerts This patient has no known allergies or adverse reactions. Medications This patient has no known medications. Procedures This patient has no known procedures. Results This patient has no known results.
[2020-08-14] MEDS ORDERED: ONDANSETRON 4 MG/2 ML VIAL ONE (10:21)
--- NOTE | 2020-08-14 11:11 | RAD REPORT ---
EXAM DESCRIPTION: US - Transvaginal Study Probe - 08/14/2020 10:04 am CLINICAL HISTORY: ABD PAIN Pelvic pain. COMPARISON: Transvaginal Study Probe dated 02/06/2019 FINDINGS: The uterus is normal in size, shape and echotexture. The uterus measures 7.7 x 4.3 x 3.5 c m. The endometrial stripe measures 10 mm, normal. Both ovaries are normal in size, shape and echotexture. The right ovary measures 2.0 x 1.4 x 1.3 cm. The left ovary measures 2.9 x 2.1 x 1.9 cm. No ovarian or parovarian lesions. No adnexal masses. Normal Doppler blood flow was demonstrated to both ovaries. No significant pelvic ascites. IMPRESSION: Unremarkable study.
[2020-08-14 11:15] LABS: Urine Blood NEGATIVE (NEG); Urine Glucose NEGATIVE (NEG); Urine Protein 1+ (NEG); Urine Specific Gravity 1.025 (1.005-1.030); Urine pH 5.5 (5.0-7.0)
[2020-08-14] MEDS ORDERED: MORPHINE 2 MG/ML SYR ONE (11:55)
[2020-08-14] MEDS ORDERED: NA CHLORIDE 0.9% 1,000 ML ONE (11:55)
--- NOTE | 2020-08-14 12:58 | RAD REPORT ---
EXAM DESCRIPTION: CT - Stone Protocol - 08/14/2020 12:37 pm CLINICAL HISTORY: ABD PAIN, left lower quadrant pain, history of ovarian cysts COMPARISON: Abdomen Pelvis W Contrast dated 02/22/2019 TECHNIQUE: Axial 3 mm thick images were obtained without oral or IV contrast. The [id number] span s the entirety of the system including uppermost abdomen and lung bases. All CT scans are performed using dose optimization technique as appropriate and may include automated exposure control or mA/KV adjustment according to patient size. FINDINGS: No hydronephrosis is present and no obstructing ureteral calculi. No suspicious renal mass es. Isodense masses and pyelonephritis are not excluded on a stone protocol CT scan. No significant a drenal finding. No urinary bladder suspicious finding. Uterus and ovaries are normal appearance for age. No abnormal ovarian cyst identifiable. Imaged portions of the liver, spleen and pancreas show no suspicious findings on non-contrast imaging . No gallbladder or biliary tree abnormality identified. No suspicious bowel findings. Appendix is identified and normal. No active bowel process identifiable . No mass or bulky lymphadenopathy. A small fat only umbilical hernia is present. Umbilical piercing is present. Trace quantity of free fluid in the cul de sac is well within physiologic limits. No free a ir or pneumatosis. No focal inflammatory stranding identifiable. No significant bony abnormality. IMPRESSION: Noncontrast CT abdomen and pelvis imaging showing no acute or emergent finding. No finding seen that would explain a persistent left lower quadrant pain pattern. Isodense masses and pyelonephritis are not excluded on stone protocol technique.Exam sensitivity over all is decreased in the absence of contrast.
--- NOTE | 2020-08-14 13:01 | EDPHYS ---
Physician Documentation [facility] Name: Makenzie Gomez Age: 24 yrs Sex: Female : 1995 Arrival Date: 08/14/2020 Time: 09:04 Bed 15 Private MD: ED Physician Nino East HPI: 08/14 12:25 This 24 yrs old Female presents to ER via Ambulatory with complaints of kb Ovarian Pain. 12:25 The patient presents with abdominal pain in the left lower quadrant. Onset: The kb symptoms/episode began/occurred 3 day(s) ago. The symptoms do not radiate. Associated signs and symptoms: none. The symptoms are described as constant, sharp. Modifying factors: The symptoms are alleviated by nothing, the symptoms are aggravated by nothing. Severity of pain: At its worst the pain was moderate severe in the emergency department the pain is unchanged. The patient has experienced a previous episode. The patient has not recently seen a physician. Pt reports pain to left lower abd/pelvis area that started 3 days ago. States it feels exactly the same as when she had an ovarian cyst rupture on the right side. 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 - Social history:: Smoking status: Patient denies any tobacco usage or history of. ROS: 12:24 Constitutional: Negative for fever, chills, and weight loss, Cardiovascular: Negative kb for chest pain, palpitations, and edema, Respiratory: Negative for shortness of breath, cough, wheezing, and pleuritic chest pain, Back: Negative for injury and pain, MS/Extremity: Negative for injury and deformity, Skin: Negative for injury, rash, and discoloration, Neuro: Negative for headache, weakness, numbness, tingling, and seizure. 12:24 Abdomen/GI: Positive for abdominal pain, Negative for nausea, vomiting, and diarrhea. Exam: 12:24 Constitutional: This is a well developed, well nourished patient who is awake, alert, kb and in no acute distress. Head/Face: Normocephalic, atraumatic. Chest/axilla: Normal chest wall appearance and motion. Nontender with no deformity. No lesions are appreciated. Cardiovascular: Regular rate and rhythm with a normal S1 and S2. No gallops, murmurs, or rubs. Normal PMI, no JVD. No pulse deficits. Respiratory: Lungs have equal breath sounds bilaterally, clear to auscultation and percussion. No rales, rhonchi or wheezes noted. No increased work of breathing, no retractions or nasal flaring. Skin: Warm, dry with normal turgor. Normal color with no rashes, no lesions, and no evidence of cellulitis. MS/ Extremity: Pulses equal, no cyanosis. Neurovascular intact. Full, normal range of motion. Neuro: Awake and alert, GCS 15, oriented to person, place, time, and situation. Cranial nerves II-XII grossly intact. Motor strength 5/5 in all extremities. Sensory grossly intact. Cerebellar exam normal. Normal gait. 12:24 Abdomen/GI: Inspection: abdomen appears normal, Bowel sounds: normal, in all quadrants, Palpation: soft, in all quadrants, moderate abdominal tenderness, in the left lower quadrant. Vital Signs: 09:09 BP 132 / 84; Pulse 93; Resp 16; Temp 98.8(TE); Pulse Ox 99% ; Weight 72.57 kg; Height 5 hb ft. 3 in. (160.02 cm); Pain 10/10; 10:59 BP 124 / 70; Pulse 81; Pulse Ox 100% ; ss 09:09 Body Mass Index 28.34 (72.57 kg, 160.02 cm) hb MDM: 09:12 Patient medically screened. 12:24 Data reviewed: vital signs, nurses notes. Data interpreted: Pulse oximetry: on room air kb is 100 %. Interpretation: normal. 13:00 Counseling: I had a detailed discussion with the patient and/or guardian regarding: the kb historical points, exam findings, and any diagnostic results supporting the discharge/admit diagnosis, lab results, radiology results, the need for outpatient follow up, a family practitioner, to return to the emergency department if symptoms worsen or persist or if there are any questions or concerns that arise at home. 08/14 09:13 Order name: Basic Metabolic Panel kb 08/14 09:13 Order name: CBC with Diff kb 08/14 09:50 Order name: CBC with Automated Diff; Complete Time: 09:53 EDMS 08/14 09:56 Order name: Basic Metabolic Panel; Complete Time: 09:57 EDMS 08/14 10:29 Order name: Urine Dipstick--Ancillary (enter results) bd 08/14 10:29 Order name: Urine --Ancillary (enter results) bd 08/14 09:13 Order name: US Transvaginal Study (Probe) kb 08/14 11:12 Order name: US; Complete Time: 11:14 EDMS 08/14 11:14 Order name: CT Stone Protocol kb 08/14 11:16 Order name: Urine --Ancillary; Complete Time: 11:16 EDMS 08/14 11:16 Order name: Urine Dipstick-Ancillary; Complete Time: 11:16 EDMS 08/14 12:59 Order name: CT; Complete Time: 12:59 EDMS 08/14 09:13 Order name: IV Saline Lock; Complete Time: 09:32 kb 08/14 09:13 Order name: Labs collected and sent; Complete Time: 09:32 kb 08/14 09:13 Order name: Urine Test (obtain specimen); Complete Time: 09:25 kb 08/14 09:13 Order name: Urine Dipstick-Ancillary (obtain specimen); Complete Time: 09:25 kb Administered Medications: 09:32 Drug: TORadol 30 mg Route: IVP; Site: left forearm; ss 11:12 Follow up: Response: No adverse reaction; No adverse reaction. pain has been miminally ss changed. 10:09 Drug: Zofran (Ondansetron) 2 mg Route: IVP; Site: left forearm; ss 11:12 Follow up: Response: No adverse reaction; Nausea is decreased ss 11:50 Drug: morphine 2 mg Route: IVP; Site: right antecubital; ss 13:28 Follow up: Response: No adverse reaction; Pain is decreased ss 11:52 Drug: NS 0.9% 1000 ml Route: IV; Rate: 1000 ml; Site: right antecubital; ss 13:28 Follow up: IV Status: IV converted to saline lock; IV Intake: 500ml ss 11:57 Not Given (Pt requested smaller dose. Josephine notified. OK to give 2 mg): morphine 4 mg ss IVP once; RASS on ADMIN: Combtv4, Very Agttd3, Agttd2, Rstlss1, AlertClm0, Drwsy-1, Lt Sdtn-2, Mod Sdtn-3, Dp Sdtn-4, UnArsble-5 Disposition: 14:35 Co-signature as Attending Physician, Nino East MD. rn Disposition: 08/14/20 13:00 Discharged to Home. Impression: Abdominal and pelvic pain. - Condition is Stable. - Discharge Instructions: Pelvic Pain, Female, Ilgy-ka-Omwu, Ovarian Cyst, Hoiz-yu-Idnk. - Prescriptions for Diclofenac Sodium 75 mg Oral Tablet, Delayed Release (E.C.) - take 1 tablet by ORAL route 2 times per day As needed; 30 tablet. - Medication Reconciliation Form, Thank You Letter, Antibiotic Education, Prescription Opioid Use form. - Follow up: Emergency Department; When: As needed; Reason: Worsening of condition. Follow up: Private Physician; When: 2 - 3 days; Reason: Recheck today's complaints, Continuance of care, Re-evaluation by your physician. Signatures: Dispatcher [employer] EDCA Josephine Ledezma, DEREJE-C GLOBAL ANALYTICS HEAD-Ckb Nino East MD MD rn Smirch, Shelby, RN RN ss Baxter, Heather, RN RN Corrections: (The following items were deleted from the chart) 13:01 13:00 08/14/2020 13:00 Discharged to Home. Impression: Lower abdominal pain, kb unspecified. Condition is Stable. Forms are Medication Reconciliation Form, Thank You Letter, Antibiotic Education, Prescription Opioid Use. Follow up: Emergency Department; When: As needed; Reason: Worsening of condition. Follow up: Private Physician; When: 2 - 3 days; Reason: Recheck today's complaints, Continuance of care, Re-evaluation by your physician. kb 13:28 13:01 08/14/2020 13:00 Discharged to Home. Impression: Abdominal and pelvic pain. ss Condition is Stable. Discharge Instructions: Pelvic Pain, Female, Zqnv-cm-Bnnw, Ovarian Cyst, Hllo-tk-[id number]. Prescriptions for Diclofenac Sodium 75 mg Oral Tablet, Delayed Release (E.C.) - take 1 tablet by ORAL route 2 times per day As needed; 30 tablet. and Forms are Medication Reconciliation Form, Thank You Letter, Antibiotic Education, Prescription Opioid Use. Follow up: Emergency Department; When: As needed; Reason: Worsening of condition. Follow up: Private Physician; When: 2 - 3 days; Reason: Recheck today's complaints, Continuance of care, Re-evaluation by your physician. kb
--- NOTE | 2020-08-14 13:01 | ER ---
Nurse's Notes [facility] Name: Makenzie Gomez Age: 24 yrs Sex: Female : 1995 Arrival Date: 08/14/2020 Time: 09:04 Bed 15 Private MD: Diagnosis: Abdominal and pelvic pain Presentation: 08/14 09:09 Chief complaint: Left lower abdominal pain x 3 days. Hx of ovarian cysts, reports pain hb is similar. Coronavirus screen: At this time, the client does not indicate any symptoms associated with coronavirus-19. Ebola Screen: No symptoms or risks identified at this time. Initial Sepsis Screen: Does the patient meet any 2 criteria? No. Patient's initial sepsis screen is negative. Does the patient have a suspected source of infection? No. Patient's initial sepsis screen is negative. Risk Assessment: Do you want to hurt yourself or someone else? Patient reports no desire to harm self or others. Onset of symptoms was August 11, 2020. 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 - Social history:: Smoking status: Patient denies any tobacco usage or history of. Screenin:12 Abuse screen: Denies threats or abuse. Nutritional screening: No deficits noted. tw2 Tuberculosis screening: No symptoms or risk factors identified. Fall Risk None identified. Assessment: 09:25 General: Appears uncomfortable, Behavior is calm, cooperative, restless, Denies fever, ss feeling ill, fatigue, chills. Pain: Complains of pain in left lower quadrant Pain currently is 10 out of 10 on a pain scale. Quality of pain is described as crampy, Pain began x 1 week Is intermittent. Neuro: Level of Consciousness is awake, alert, obeys commands, Oriented to person, place, time, situation, Speech is normal. Cardiovascular: Capillary refill < 3 seconds is brisk in bilateral fingers. Respiratory: Airway is patent Respiratory effort is even, unlabored, Respiratory pattern is regular, symmetrical. GI: Reports lower abdominal pain, diarrhea, nausea, vomiting, since x 1 week. : Denies burning with urination, urinary frequency, vaginal bleeding. EENT: Nares are clear Oral mucosa is moist. Derm: Skin is intact, is healthy with good turgor, Skin is dry, Skin is pink, warm \T\ dry. normal. Musculoskeletal: Circulation, motion, and sensation intact. Range of motion: intact in all extremities, Swelling absent. 09:32 Reassessment: Pt to CT now at this time VIA wheelchair. ss 09:57 Reassessment: Pt back from US. ss 11:00 Reassessment: Pt requesting additional pain medication. SARWAT Burton notified. ss 12:46 Reassessment: Patient is back from CT. Awaiting results. ss Vital Signs: 09:09 BP 132 / 84; Pulse 93; Resp 16; Temp 98.8(TE); Pulse Ox 99% ; Weight 72.57 kg; Height 5 hb ft. 3 in. (160.02 cm); Pain 10/10; 10:59 BP 124 / 70; Pulse 81; Pulse Ox 100% ; ss 09:09 Body Mass Index 28.34 (72.57 kg, 160.02 cm) hb ED Course: 09:04 Patient arrived in ED. ds1 09:04 Josephine Ledezma FNP-C is [facility]. kb 09:04 Nino East MD is Attending Physician. kb 09:08 Arm band placed on. hb 09:12 Triage completed. hb 09:12 Call light in reach. Side rails up X 1. Pulse ox on. NIBP on. tw2 09:28 Initial lab(s) drawn, by me, sent to lab. Inserted saline lock: 22 gauge in left dh3 forearm, using aseptic technique. Blood collected. 09:57 Michelle Jonas, KATHRIN is Primary Nurse. ss 11:45 Inserted saline lock: 22 gauge in right antecubital area, using aseptic technique. ss Blood collected. 13:13 IV discontinued, intact, bleeding controlled, No redness/swelling at site. Pressure dh3 dressing applied. 13:27 No provider procedures requiring assistance completed. ss Administered Medications: 09:32 Drug: TORadol 30 mg Route: IVP; Site: left forearm; ss 11:12 Follow up: Response: No adverse reaction; No adverse reaction. pain has been miminally ss changed. 10:09 Drug: Zofran (Ondansetron) 2 mg Route: IVP; Site: left forearm; ss 11:12 Follow up: Response: No adverse reaction; Nausea is decreased ss 11:50 Drug: morphine 2 mg Route: IVP; Site: right antecubital; ss 13:28 Follow up: Response: No adverse reaction; Pain is decreased ss 11:52 Drug: NS 0.9% 1000 ml Route: IV; Rate: 1000 ml; Site: right antecubital; ss 13:28 Follow up: IV Status: IV converted to saline lock; IV Intake: 500ml ss 11:57 Not Given (Pt requested smaller dose. Josephine notified. OK to give 2 mg): morphine 4 mg ss IVP once; RASS on ADMIN: Combtv4, Very Agttd3, Agttd2, Rstlss1, AlertClm0, Drwsy-1, Lt Sdtn-2, Mod Sdtn-3, Dp Sdtn-4, UnArsble-5 Intake: 13:28 IV: 500ml; Total: 500ml. ss Outcome: 13:00 Discharge ordered by . kb 13:27 Discharged to home ambulatory. ss 13:27 Condition: improved 13:27 Discharge instructions given to patient, Instructed on discharge instructions, follow up and referral plans. medication usage, Demonstrated understanding of instructions, follow-up care, medications, Prescriptions given X 1. 13:28 Patient left the ED. ss Signatures: Josephine Ledezma, EMERGENCY ROOM CLINICIAN-C EMERGENCY ROOM CLINICIAN-Becca Gilbert ds1 Michelle Jonas RN RN Jane Carreon RN RN Nicky Lane RN RN 2 Edilia Nava 3
[2020-08-14 13:45] VITALS: TEMP 98.8
[2020-08-14 13:46] VITALS: BP 124/70; O2SAT 100
== END 2020-08-14 13:28 | disposition home or self-care (01) ==
LOC: ER 08:47
DX: R10.32 Left lower quadrant pain (principal); R10.2 Pelvic and perineal pain
CPT/HCPCS: 36415; 74176; 76377; 76830; 80048; 81003; 81025; 85025; 99284; J2270; J2405; J7030

== ENCOUNTER 2020-10-12 07:09 | Emergency (ER) | payer SELFPAY ==
--- OUTSIDE RECORDS SUMMARY | 2020-10-12 07:12 | XMS REPORT | Continuity of Care Document ---
:1995 Author Organization [facility] t Address [address] [place] [address] Care Team Providers Name Role Phone Guilherme NAVARRO Attending Clinician Doctor Unassigned, Name Attending Clinician Unavailable Problems This patient has no known problems. Allergies, Adverse Reactions, Alerts This patient has no known allergies or adverse reactions. Medications This patient has no known medications. Procedures This patient has no known procedures. Encounters Start End Encounter Admission Attending Care Care Encounter Source Date/Time Date/Time Type Type Clinicians Facility Department ID 2020-08-17 2020-08-17 [id number] 09:25:00 12:15:00 Brendan Clark [id number] [place] [id number] [place] [id number] 2020-08-17 2020-08-17 Orders Doctor HAIRSTON [id number] 00:00:00 00:00:00 Only UnassignedHAILEY [id number] [place] [facility] [id number] Results This patient has no known results.
[2020-10-12] MEDS ORDERED: NA CHLORIDE 0.9% 1,000 ML ONE (07:43)
[2020-10-12] MEDS ORDERED: ONDANSETRON 4 MG/2 ML VIAL ONE (07:43)
[2020-10-12] MEDS ORDERED: FAMOTIDINE 20 MG/2 ML VIAL IV ONE (07:43)
[2020-10-12 08:04] LABS: Absolute Lymphocytes (CBC) 1.4 K/uL (0.7-4.9); Basophils % 0.8 % (0-1.3); Hematocrit 35.8 % (36.0-45.0); Lymphocytes % 16.8 % (15.3-44.8); MPV 7.8 fL (7.6-11.3); RBC Red Blood Cell Count 4.17 M/uL (3.86-4.86)
[2020-10-12 08:15] LABS: Urine Blood NEGATIVE (NEG); Urine Glucose NEGATIVE (NEG); Urine Protein 1+ (NEG); Urine Specific Gravity >1.030 (1.005-1.030)
[2020-10-12 08:26] LABS: ALT/SGPT 14 U/L (12-78); AST/SGOT 8 U/L (15-37); Albumin 3.4 g/dL (3.4-5.0); Alkaline Phosphatase 65 U/L (45-117); BUN Blood Urea Nitrogen 8 mg/dL (7-18); Bicarbonate 26 mmol/L (21-32); Bilirubin Direct < 0.1 mg/dL (0-0.2); Bilirubin Total 0.2 mg/dL (0.2-1.0); Glucose Level 80 mg/dL (74-106); Lipase 45 U/L (73-393); Protein, Total 8.8 g/dL (6.4-8.2); Sodium Level 138 mmol/L (136-145)
--- NOTE | 2020-10-12 10:58 | ER ---
Nurse's Notes [facility] Name: Makenzie Gomez Age: 24 yrs Sex: Female : 1995 Arrival Date: 10/12/2020 Time: 07:10 Bed 7 Private MD: Diagnosis: Nausea and vomiting Presentation: 10/12 07:10 Chief complaint: Patient states: VOMITING AND DIARRHEA x2 DAYS. Coronavirus screen: At bp this time, the client does not indicate any symptoms associated with coronavirus-19. Ebola Screen: No symptoms or risks identified at this time. Initial Sepsis Screen: Does the patient meet any 2 criteria? No. Patient's initial sepsis screen is negative. Does the patient have a suspected source of infection? No. Patient's initial sepsis screen is negative. Risk Assessment: Do you want to hurt yourself or someone else? Patient reports no desire to harm self or others. Onset of symptoms is unknown. 07:10 Method Of Arrival: Ambulatory bp 07:10 Acuity: LAUREN 3 bp Triage Assessment: 07:10 General: Appears in no apparent distress. uncomfortable, Behavior is calm, cooperative, bp appropriate for age. Pain: Denies pain. EENT: No deficits noted. Neuro: No deficits noted. Cardiovascular: No deficits noted. Respiratory: No deficits noted. GI: Reports diarrhea, nausea, vomiting. : No signs and/or symptoms were reported regarding the genitourinary system. Derm: No deficits noted. Musculoskeletal: No deficits noted. Historical: - Allergies: 07:10 No Known Allergies; bp - Home Meds: 07:10 None [Active]; bp - PMHx: 07:10 Ovarian cysts; bp - Immunization history:: Adult Immunizations up to date. - Social history:: Smoking status: Patient reports the use of cigarette tobacco products, smokes one pack cigarettes per day. Screenin:10 Abuse screen: Denies threats or abuse. Denies injuries from another. Nutritional bp screening: No deficits noted. Tuberculosis screening: No symptoms or risk factors identified. Fall Risk None identified. Assessment: 07:10 General: SEE TRIAGE NOTE. bp 10:00 Reassessment: Dr. Johnson provided crackers and Sprite to pt for PO challenge. jl7 10:47 Reassessment: Pt reports feeling better, able to eat 3 packs of saltine crackers and jl7 drink some sprite, denies discomfort, ERD notified. Vital Signs: 07:10 BP 115 / 66; Pulse 87; Resp 17; Temp 98; Pulse Ox 99% ; Weight 63.5 kg; Height 5 ft. 2 bp in. (157.48 cm); 07:52 BP 104 / 71; Pulse 64; Resp 17; Pulse Ox 100% ; bp 09:16 BP 108 / 69; Pulse 59; Resp 17; Pulse Ox 99% ; bp 10:26 BP 109 / 57; Pulse 59; Resp 17; Pulse Ox 99% ; jl7 07:10 Body Mass Index 25.61 (63.50 kg, 157.48 cm) bp ED Course: 07:10 Patient arrived in ED. am2 07:10 Arm band placed on. bp 07:10 Patient has correct armband on for positive identification. Bed in low position. Call bp light in reach. Side rails up X2. 07:14 Wilian Loomis, KATHRIN is Primary Nurse. bp 07:19 Rj Johnson MD is Attending Physician. kdr 07:31 Triage completed. bp 07:50 Inserted saline lock: 20 gauge in right antecubital area, using aseptic technique. bp 11:22 No provider procedures requiring assistance completed. IV discontinued, intact, jl7 bleeding controlled, No redness/swelling at site. Pressure dressing applied. Administered Medications: 07:50 Drug: Zofran (Ondansetron) 4 mg Route: IVP; Site: right antecubital; bp 10:46 Follow up: Response: No adverse reaction; Nausea is decreased jl7 07:50 Drug: NS 0.9% 1000 ml Route: IV; Rate: 1 bolus; Site: right antecubital; bp 10:47 Follow up: Response: No adverse reaction; IV Status: Completed infusion; IV Intake: jl7 1000ml 07:50 Drug: Pepcid 20 mg Route: IVP; Site: right antecubital; bp 10:47 Follow up: Response: No adverse reaction jl7 Intake: 10:47 IV: 1000ml; Total: 1000ml. jl7 Outcome: 10:57 Discharge ordered by . kdr 11:22 Discharged to home ambulatory. jl7 11:22 Condition: stable 11:22 Discharge instructions given to patient, Instructed on discharge instructions, follow up and referral plans. medication usage, Demonstrated understanding of instructions, follow-up care, medications, Prescriptions given X 2. 11:22 Patient left the ED. jl7 Signatures: Rj Johnson MD MD kdr Sha Pierre RN RN jl7 Suze Okeefe Brian, RN RN bp
--- NOTE | 2020-10-12 10:58 | EDPHYS ---
Physician Documentation [facility] Name: Makenzie Gomez Age: 24 yrs Sex: Female : 1995 Arrival Date: 10/12/2020 Time: 07:10 Bed 7 Private MD: ED Physician Rj Johnson HPI: 10/12 07:25 This 24 yrs old Female presents to ER via Unassigned with complaints of kdr Vomiting/Diarrhea. 07:25 The patient presents to the emergency department with nausea, that is moderate, kdr vomiting, that is intermittent, diarrhea, that is intermittent, abdominal pain, of the suprapubic area, right lower quadrant and left lower quadrant. Onset: The symptoms/episode began/occurred gradually, 2 day(s) ago. Possible causes: bad food exposure. The symptoms are aggravated by food , The symptoms are alleviated by nothing. Associated signs and symptoms: The patient has no apparent associated signs or symptoms. Severity of symptoms: At their worst the symptoms were mild moderate just prior to arrival, in the emergency department the symptoms are unchanged. The patient has not experienced similar symptoms in the past. The patient has not recently seen a physician. States that she was eating a lot of [place] food the past few days prior to this. Historical: - Allergies: 07:10 No Known Allergies; bp - Home Meds: 07:10 None [Active]; bp - PMHx: 07:10 Ovarian cysts; bp - Immunization history:: Adult Immunizations up to date. - Social history:: Smoking status: Patient reports the use of cigarette tobacco products, smokes one pack cigarettes per day. ROS: 07:25 Constitutional: Negative for fever, chills, and weight loss, Eyes: Negative for injury, kdr pain, redness, and discharge, ENT: Negative for injury, pain, and discharge, Neck: Negative for injury, pain, and swelling, Cardiovascular: Negative for chest pain, palpitations, and edema, Respiratory: Negative for shortness of breath, cough, wheezing, and pleuritic chest pain, Back: Negative for injury and pain, : Negative for injury, bleeding, discharge, and swelling, MS/Extremity: Negative for injury and deformity, Skin: Negative for injury, rash, and discoloration, Neuro: Negative for headache, weakness, numbness, tingling, and seizure activity. Psych: Negative for depression, anxiety, suicide ideation, homicidal ideation, and hallucinations, Allergy/Immunology: Negative for hives, rash, and allergies, Endocrine: Negative for neck swelling, polydipsia, polyuria, polyphagia, and marked weight changes, Hematologic/Lymphatic: Negative for swollen nodes, abnormal bleeding, and unusual bruising. 07:25 Abdomen/GI: Positive for abdominal pain, nausea, vomiting, and diarrhea, Negative for constipation, dysphagia, hematemesis, black/tarry stool, rectal pain, rectal bleeding. Exam: 07:25 Constitutional: This is a well developed, well nourished patient who is awake, alert, kdr and in no acute distress. Head/Face: Normocephalic, atraumatic. Eyes: Pupils equal round and reactive to light, extra-ocular motions intact. Lids and lashes normal. Conjunctiva and sclera are non-icteric and not injected. Cornea within normal limits. Periorbital areas with no swelling, redness, or edema. Neck: Trachea midline, no thyromegaly or masses palpated, and no cervical lymphadenopathy. Supple, full range of motion without nuchal rigidity, or vertebral point tenderness. No Meningismus. Chest/axilla: Normal chest wall appearance and motion. Nontender with no deformity. No lesions are appreciated. Cardiovascular: Regular rate and rhythm with a normal S1 and S2. No gallops, murmurs, or rubs. Normal PMI, no JVD. No pulse deficits. Respiratory: Lungs have equal breath sounds bilaterally, clear to auscultation and percussion. No rales, rhonchi or wheezes noted. No increased work of breathing, no retractions or nasal flaring. Back: No spinal tenderness. No costovertebral tenderness. Full range of motion. Skin: Warm, dry with normal turgor. Normal color with no rashes, no lesions, and no evidence of cellulitis. MS/ Extremity: Pulses equal, no cyanosis. Neurovascular intact. Full, normal range of motion. Neuro: Awake and alert, GCS 15, oriented to person, place, time, and situation. Cranial nerves II-XII grossly intact. Motor strength 5/5 in all extremities. Sensory grossly intact. Cerebellar exam normal. Normal gait. Psych: Awake, alert, with orientation to person, place and time. Behavior, mood, and affect are within normal limits. 07:25 Abdomen/GI: Inspection: abdomen appears normal, Bowel sounds: normal, diminished, in all quadrants, Palpation: soft, mild abdominal tenderness, in the suprapubic area, right lower quadrant and left lower quadrant. Vital Signs: 07:10 BP 115 / 66; Pulse 87; Resp 17; Temp 98; Pulse Ox 99% ; Weight 63.5 kg; Height 5 ft. 2 bp in. (157.48 cm); 07:52 BP 104 / 71; Pulse 64; Resp 17; Pulse Ox 100% ; bp 09:16 BP 108 / 69; Pulse 59; Resp 17; Pulse Ox 99% ; bp 10:26 BP 109 / 57; Pulse 59; Resp 17; Pulse Ox 99% ; jl7 07:10 Body Mass Index 25.61 (63.50 kg, 157.48 cm) bp MDM: 07:25 Data reviewed: vital signs, nurses notes, lab test result(s). Counseling: I had a kdr detailed discussion with the patient and/or guardian regarding: the historical points, exam findings, and any diagnostic results supporting the discharge/admit diagnosis, lab results, the need for outpatient follow up. 10:57 [facility] medically screened. [facility] 10[facility]12 07:25 Order name: Basic Metabolic Panel; Complete Time: 09:56 [facility] 10/12 07:25 Order name: CBC with Diff; Complete Time: 09:56 [facility] 10/12 07:25 Order name: Hepatic Function; Complete Time: 09:56 [facility] 10/12 07:25 Order name: Lipase; Complete Time: 09:56 [facility] 10/12 08:00 Order name: Urine Dipstick--Ancillary (enter results); Complete Time: 09:56 [facility] system 10/12 08:00 Order name: Urine --Ancillary (enter results); Complete Time: 09:56 [facility] system 10/12 07:25 Order name: IV Saline Lock; Complete Time: 07:53 [facility] 10/12 07:25 Order name: Labs collected and sent; Complete Time: 07:53 [facility] 10/12 07:25 Order name: Urine Dipstick-Ancillary (obtain specimen); Complete Time: 07:54 [facility] 10/12 07:25 Order name: Urine Test (obtain specimen); Complete Time: 07:54 [facility] 10/12 09:57 Order name: PO challenge; Complete Time: 10:44 kdr Administered Medications: 07:50 Drug: Zofran (Ondansetron) 4 mg Route: IVP; Site: right antecubital; bp 10:46 Follow up: Response: No adverse reaction; Nausea is decreased jl 07:50 Drug: NS 0.9% 1000 ml Route: IV; Rate: 1 bolus; Site: right antecubital; bp 10:47 Follow up: Response: No adverse reaction; IV Status: Completed infusion; IV Intake: 7 1000ml 07:50 Drug: Pepcid 20 mg Route: IVP; Site: right antecubital; bp 10:47 Follow up: Response: No adverse reaction jl7 Disposition: 10/12/20 10:57 Discharged to Home. Impression: Nausea and vomiting. - Condition is Stable. - Discharge Instructions: Nausea and Vomiting, Adult, [id number]. - Prescriptions for Zofran ODT 4 mg Oral tablet,disintegrating - place 2 tablet by TRANSLINGUAL route every 8 hours for 1 day; 20 tablet. Phenergan 25 mg Rectal Suppository - insert 1 suppository by RECTAL route every 6 hours As needed; 12 suppository. - Medication Reconciliation Form, Thank You Letter form. - Follow up: Private Physician; When: 2 - 3 days; Reason: If symptoms return, Further diagnostic work-up, Recheck today's complaints, Continuance of care, Re-evaluation by your physician. - Problem is new. - Symptoms have improved. Signatures: Dispatcher [employer] EDMS Rj Johnson MD MD [facility] Sha Pierre RN RN jl7 Wilian Loomis RN RN bp Corrections: (The following items were deleted from the chart) 11:22 10:57 10/12/2020 10:57 Discharged to Home. Impression: Nausea and vomiting. Condition jl7 is Stable. Forms are Medication Reconciliation Form, Thank You Letter, Antibiotic Education, Prescription Opioid Use. Follow up: Private Physician; When: 2 - 3 days; Reason: If symptoms return, Further diagnostic work-up, Recheck today's complaints, Continuance of care, Re-evaluation by your physician. Problem is new. Symptoms have improved. kdr
[2020-10-12 11:47] VITALS: TEMP 98
[2020-10-12 11:49] VITALS: O2SAT 99
[2020-10-12 11:50] VITALS: BP 109/57
== END 2020-10-12 11:22 | disposition home or self-care (01) ==
LOC: ER 07:09
DX: R11.2 Nausea with vomiting, unspecified (principal); R19.7 Diarrhea, unspecified; F17.210 Nicotine dependence, cigarettes, uncomplicated
CPT/HCPCS: 36415; 80048; 80076; 81003; 81025; 83690; 85025; 96361; 96374; 96375; 99283; J2405; J7030